=== PATIENT | female | born 1995 | race Caucasian/White ===

== ENCOUNTER 2020-03-06 15:54 | Inpatient (IN) ==
--- OUTSIDE RECORDS SUMMARY | 2020-03-06 15:59 | External Medical Summary | Continuity of Care Document ---
:1995 Author Name Markos Rosas Address Unavailable Unavailable , Care Team Providers Name Role Phone Unavailable Unavailable Unavailable Lissett Verdin M.D. Unavailable [email or web address] Kirsty BRITT M.D. Unavailable Unavailable Problems Active medical history not documented Allergies and Adverse Reactions No Known Allergies (Allergy) Medications No Reported Medications Ralph Verdin Refills: 0 Procedures Procedures not documented Immunizations Hepatitis B On: 18-Mar-1992 0:00 Hepatitis B On: 1993 0:00 DTaP On: 1993 0:00 HIB On: 1993 0:00 OPV On: 1993 0:00 DTaP On: 1993 0:00 HIB On: 1993 0:00 OPV On: 1993 0:00 Hepatitis B On: 1993 0:00 DTaP On: 1993 0:00 HIB On: 1993 0:00 HIB On: 27-May-1994 0:00 MMR On: 27-May-1994 0:00 DTaP On: 17-Aug-1994 0:00 OPV On: 17-Aug-1994 0:00 Varicella On: 17-Feb-1995 0:00 DTaP On: 08-Apr-1998 0:00 OPV On: 08-Apr-1998 0:00 MMR On: 08-Apr-1998 0:00 Tdap On: 26-May-2005 0:00 Varicella On: 06-Mar-2009 9:40 Lot #: [id number], [employer] Meningo (Menactra) On: 06-Mar-2009 9:40 Lot #: [id number], [employer] HPV (Gardasil) On: 06-Mar-2009 9:39 Lot #: [id number], [employer] HPV (Gardasil) On: 01-Jan-2010 11:46 Lot #: [id number], [employer] Influenza (Nasal) On: 01-Jan-2010 11:47 Lot #: [id number], [employer] HPV (Gardasil) On: 15-Sep-2011 9:19 Lot #: [id number], [employer] Hepatitis A On: 15-Sep-2011 9:19 Lot #: [id number], [employer] Plan of Treatment Planned Observations Planned Goals not documented Results No Known Results Results not documented
[2020-03-06 16:38] LABS: Basophils # (auto) 0.01 K/uL (0-0.2); Basophils % (auto) 0.1 %; Eosinophils # (auto) 0.09 K/uL (0-0.5); Eosinophils % (auto) 0.8 %; Hematocrit (blood only) 37.4 % (37-47); Hemoglobin 12.8 g/dL (12.0-16.0); Immature Granulocytes # (auto) 0.04 K/uL (0.00-0.02); Immature Granulocytes % (auto) 0.3 %; Lymphocytes # (auto) 2.78 K/uL (1.2-3.4); Lymphocytes % (auto) 23.8 %; Mean Corpuscular Hemoglobin 29.7 pg (25-34); Mean Corpuscular Hgb Conc 34.2 g/dL (32-36); Mean Corpuscular Volume 86.8 fL (80-100); Monocytes # (auto) 1.29 K/uL (0.11-0.59); Neutrophils # (auto) 7.47 K/uL (1.4-6.5); Platelet Count 282 K/uL (130-400); RDW Coefficient of Variation 12.1 % (11.5-14.5); RDW Standard Deviation 38.3 fL (36.4-46.3); Red Blood Count 4.31 M/uL (4.2-5.4); White Blood Count 11.68 K/uL (4.8-10.8)
[2020-03-06 16:58] LABS: Alanine Aminotransferase 15 U/L (12-78); Albumin Level 2.2 gm/dl (3.4-5.0); Aspartate Aminotransferase 14 U/L (15-37); BUN Creatinine Ratio 13.4 (10-20); Bilirubin Direct < 0.1 mg/dl (0-0.2); Blood Urea Nitrogen 8 mg/dl (7-18); Calcium 8.4 mg/dl (8.5-10.1); Carbon Dioxide 21 mmol/L (21-32); Chloride 106 mmol/L (98-107); Creatinine Clr Calc Pharmacy 145.4 ml/min; Est GFR (African American) 148.1; Est GFR (Non-African American) 127.8; Glucose 82 mg/dl (70-99); Potassium 3.7 mmol/L (3.5-5.1); Sodium 137 mmol/L (136-145); Uric Acid 4.7 mg/dl (2.6-7.2)
[2020-03-06 17:01] LABS: Alkaline Phosphatase 185 U/L (45-117); Bilirubin,Total 0.2 mg/dl (0.2-1); Total Protein 6.2 gm/dl (6.4-8.2)
[2020-03-06 17:42] LABS: Appearance Urine Clear (Clear); Bilirubin Urine Negative (Negative); Blood Urine Trace (Negative); Color Urine Yellow; Glucose Urine UA Negative (Negative); Ketones Urine Negative (Negative); Leukocyte Esterase Urine Negative (Negative); Nitrite Urine Negative (Negative); Protein Urine 4+ (Negative); Specific Gravity Urine 1.008 (1.000-1.030); Urobilinogen Urine Negative (Negative)
[2020-03-06 17:57] LABS: Protein Creatinine Ratio Urine 16.9 (0-0.2); Total Protein Urine Random 590.8 mg/dl (0-11.9)
[2020-03-06] MEDS ORDERED: OXYTOCIN 30 UNITS/500 ML BAG IV PRN (18:04)
[2020-03-06] MEDS ORDERED: PENICILLIN G POTASSIUM 6 MU in DEXTROSE 5% 250 ML IV STA (18:04)
[2020-03-06 18:09] LABS: Bacteria Urine Negative (Negative); Epithelial Cell Urine >30 /lpf (0-5); RBC Urine 0-4 /hpf (0-4); WBC Urine 0-5 /hpf (0-5)
[2020-03-06] MEDS ORDERED: DINOPROSTONE 10 MG INSERT PV ONE (18:22)
[2020-03-06] MEDS ORDERED: MAG SULFATE 6GM BOLUS FROM BAG IV ONE (18:23)
[2020-03-06] MEDS: LACTATED RINGER'S 1,000 ML IV PRN (18:34)
--- NOTE | 2020-03-06 18:37 | Obstetrical Progress Note ---
Date of Service March 06, 2020 Assessment & Plan Admission and Anticipated Discharge Date Admission Date: March 06, 2020 Subjective Admit Note 25 F P0010 at 36.3 weeks sent to L&D for elevated blood pressure and swelling in her legs with weight gain over the last few weeks. She denies headache, visual changes abdominal pain or any nausea or vomiting. Was seen today for her normal appointment and had 3+ protein on urine dip. she is now seen for monitoring of blood pressure and has BP 163/79 with 3-4+ pitting edema in lower extremities. No edema of upper extremities or face. NO RUQ pain with palpation. Uterus non-tender. FHT Cat 1. GBS status is unknown. Cervix closed/50/-3/firm/vertex/intact. Labs indicate 4+ protein in her urine. Will admit and start Magnesium with 6 gram bolus and 2 gram drip. Antibiotics for GBS prophylaxis when in active labor. Covid testing is pending. Plan for Cervidil for cervical ripening. Results & Data ([facility]) Vital Signs (Past 12 Hours) Vital Signs Temp Pulse Resp BP 03/06/20 18:16 98 H 189/111 H 03/06/20 18:06 93 H 170/106 H 03/06/20 17:56 88 154/98 H 03/06/20 17:47 93 H 150/99 H 03/06/20 17:36 86 157/99 H 03/06/20 17:26 87 167/100 H 03/06/20 17:16 90 171/102 H 03/06/20 17:06 92 H 157/102 H 03/06/20 16:56 93 H 156/101 H 03/06/20 16:52 93 H 159/102 H 03/06/20 16:36 90 164/97 H 03/06/20 16:26 90 164/97 H 03/06/20 16:17 93 H 177/110 H 03/06/20 16:11 37.0 C 20 03/06/20 16:04 96 H 187/102 H Laboratory Results 03/06/20 03/06/20 03/06/20 16:24 16:24 16:24 WBC 11.68 H RBC 4.31 Hgb 12.8 Hct 37.4 MCV 86.8 MCH 29.7 MCHC 34.2 RDW Std Deviation 38.3 RDW Coeff of Tabatha 12.1 Plt Count 282 MPV 11.0 H Immature Gran % (Auto) 0.3 Neut % (Auto) 64.0 Lymph % (Auto) 23.8 [place] % (Auto) 11.0 Eos % (Auto) 0.8 Baso % (Auto) 0.1 Neut # (Auto) 7.47 H Lymph # (Auto) 2.78 [place] # (Auto) 1.29 H Eos # (Auto) 0.09 Baso # (Auto) 0.01 Immature Gran # (Auto) 0.04 H Sodium 137 Potassium 3.7 Chloride 106 Carbon Dioxide 21 Anion Gap 10.0 BUN 8 Creatinine 0.56 L Est Cr Clr Drug Dosing 145.4 Est GFR ( Amer) 148.1 Est GFR (Non-Af Amer) 127.8 BUN/Creatinine Ratio 13.4 Glucose 82 Uric Acid 4.7 Calcium 8.4 L Total Bilirubin 0.2 Direct Bilirubin < 0.1 AST 14 L ALT 15 Alkaline Phosphatase 185 H Lactate Dehydrogenase 178 Total Protein 6.2 L Albumin 2.2 L Urine Color Urine Appearance Urine pH Ur Specific [place] Urine Protein Urine Glucose (UA) Urine Ketones Urine Blood Urine Nitrite Urine Bilirubin Urine Urobilinogen Ur Leukocyte Esterase Urine RBC Urine WBC Ur Epithelial Cells Urine Bacteria Ur Random Creatinine U Random Total Protein Protein/Creatinin Ratio COVID-19 Eval Order 03/06/20 03/06/20 03/06/20 Unknown Unknown Unknown WBC RBC Hgb Hct MCV MCH MCHC RDW Std Deviation RDW Coeff of Tabatha Plt Count MPV Immature Gran % (Auto) Neut % (Auto) Lymph % (Auto) [place] % (Auto) Eos % (Auto) Baso % (Auto) Neut # (Auto) Lymph # (Auto) [place] # (Auto) Eos # (Auto) Baso # (Auto) Immature Gran # (Auto) Sodium Potassium Chloride Carbon Dioxide Anion Gap BUN Creatinine Est Cr Clr Drug Dosing Est GFR ( Amer) Est GFR (Non-Af Amer) BUN/Creatinine Ratio Glucose Uric Acid Calcium Total Bilirubin Direct Bilirubin AST ALT Alkaline Phosphatase Lactate Dehydrogenase Total Protein Albumin Urine Color Yellow Urine Appearance Clear Urine pH 7.0 Ur Specific [place] 1.008 Urine Protein 4+ H Urine Glucose (UA) Negative Urine Ketones Negative Urine Blood Trace H Urine Nitrite Negative Urine Bilirubin Negative Urine Urobilinogen Negative Ur Leukocyte Esterase Negative Urine RBC 0-4 Urine WBC 0-5 Ur Epithelial Cells >30 H Urine Bacteria Negative Ur Random Creatinine 35.0 U Random Total Protein 590.8 H Protein/Creatinin Ratio 16.9 H COVID-19 [facility]
[2020-03-06] MEDS: MAGNESIUM SULFATE / WTR 40 GM/1,000 ML BAG IV SCH (18:52)
--- NOTE | 2020-03-06 19:28 | Obstetrical Progress Note ---
Date of Service March 06, 2020 Assessment & Plan Admission and Anticipated Discharge Date Admission Date: March 06, 2020 Physical Exam Genitourinary: Cervidil 10 mg placed vaginally for cervical ripening Results & Data ([facility]) Vital Signs (Past 12 Hours) Vital Signs Temp Pulse Resp BP 03/06/20 19:26 109 H 160/91 H 03/06/20 19:16 112 H 155/89 H 03/06/20 19:06 104 H 165/104 H 03/06/20 18:56 101 H 155/79 H 03/06/20 18:46 96 H 166/89 H 03/06/20 18:36 109 H 178/107 H 03/06/20 18:26 88 163/79 H 03/06/20 18:16 98 H 189/111 H 03/06/20 18:06 93 H 170/106 H 03/06/20 17:56 88 154/98 H 03/06/20 17:47 93 H 150/99 H 03/06/20 17:36 86 157/99 H 03/06/20 17:26 87 167/100 H 03/06/20 17:16 90 171/102 H 03/06/20 17:06 92 H 157/102 H 03/06/20 16:56 93 H 156/101 H 03/06/20 16:52 93 H 159/102 H 03/06/20 16:36 90 164/97 H 03/06/20 16:26 90 164/97 H 03/06/20 16:17 93 H 177/110 H 03/06/20 16:11 37.0 C 20 03/06/20 16:04 96 H 187/102 H
[2020-03-06] MEDS: PENICILLIN G POTASSIUM 3 MU in DEXTROSE 5% 100 ML IV PRN (22:31)
[2020-03-06] MEDS ORDERED: ERYTHROMYCIN OP OINT 1 GM PKT ONE (23:56)
[2020-03-06] MEDS ORDERED: LIDOCAINE HCL 1% 20 ML VIAL ONE (23:56)
[2020-03-07] MEDS: PENICILLIN G POTASSIUM 3 MU in DEXTROSE 5% 100 ML IV PRN ×5 (02:44→17:58)
--- NOTE | 2020-03-07 07:32 | Obstetrical Progress Note ---
Date of Service March 07, 2020 Assessment & Plan Admission and Anticipated Discharge Date Admission Date: March 06, 2020 Physical Exam Genitourinary: Manual OB Exam: + cervical dilation fingertip, + cervical effacement 50% and + station high OB Exam Monitor Tracing: + external FHT monitor used, + external uterine monitor used, + category I and + normal FHT variability Cervidil removed Results & Data ([facility]) Vital Signs (Past 12 Hours) Vital Signs Pulse Resp BP 03/07/20 07:11 109 H 156/89 H 03/07/20 06:57 103 H 136/88 03/07/20 06:00 18 03/07/20 05:57 107 H 137/85 03/07/20 05:00 18 03/07/20 04:57 114 H 136/86 03/07/20 03:57 110 H 141/85 H 03/07/20 03:00 18 03/07/20 02:57 102 H 143/94 H 03/07/20 02:00 16 03/07/20 01:57 105 H 160/95 H 03/07/20 00:57 100 H 139/86 03/07/20 00:00 18 03/06/20 23:58 97 H 143/86 H 03/06/20 23:15 18 03/06/20 23:00 18 03/06/20 22:57 103 H 143/98 H 03/06/20 22:45 18 03/06/20 22:36 99 H 151/82 H 03/06/20 22:30 18 03/06/20 22:26 101 H 135/75 03/06/20 22:16 95 H 143/71 H 03/06/20 22:15 16 03/06/20 22:06 96 H 139/76 03/06/20 22:00 18 03/06/20 21:56 96 H 147/78 H 03/06/20 21:46 110 H 146/72 H 03/06/20 21:45 18 03/06/20 21:36 91 H 140/75 03/06/20 21:30 18 03/06/20 21:26 93 H 141/78 H 03/06/20 21:16 101 H 143/75 H 03/06/20 21:15 18 03/06/20 21:08 94 H 155/92 H 03/06/20 21:00 18 03/06/20 20:56 90 151/86 H 03/06/20 20:46 90 147/90 H 03/06/20 20:45 18 03/06/20 20:36 95 H 150/90 H 03/06/20 20:30 18 03/06/20 20:26 97 H 145/88 H 03/06/20 20:16 98 H 143/80 H 03/06/20 20:15 18 03/06/20 20:06 96 H 152/85 H 03/06/20 20:00 18 03/06/20 19:56 93 H 150/87 H 03/06/20 19:46 96 H 144/83 H 03/06/20 19:45 18 03/06/20 19:36 96 H 151/84 H
[2020-03-07] MEDS ORDERED: OXYTOCIN 30 UNITS/500 ML BAG IV PRN (08:32)
[2020-03-07 08:54] LABS: Basophils # (auto) 0.02 K/uL (0-0.2); Basophils % (auto) 0.1 %; Eosinophils # (auto) 0.02 K/uL (0-0.5); Eosinophils % (auto) 0.1 %; Hematocrit (blood only) 35.9 % (37-47); Hemoglobin 12.3 g/dL (12.0-16.0); Immature Granulocytes # (auto) 0.03 K/uL (0.00-0.02); Immature Granulocytes % (auto) 0.2 %; Lymphocytes # (auto) 1.82 K/uL (1.2-3.4); Lymphocytes % (auto) 11.7 %; Mean Corpuscular Hemoglobin 29.7 pg (25-34); Mean Corpuscular Hgb Conc 34.3 g/dL (32-36); Mean Corpuscular Volume 86.7 fL (80-100); Mean Platelet Volume 10.9 fL (7.4-10.4); Monocytes % (auto) 7.7 %; Neutrophils # (auto) 12.49 K/uL (1.4-6.5); Neutrophils % (auto) 80.2 %; Platelet Count 318 K/uL (130-400); RDW Coefficient of Variation 12.5 % (11.5-14.5); RDW Standard Deviation 39.9 fL (36.4-46.3); Red Blood Count 4.14 M/uL (4.2-5.4); White Blood Count 15.58 K/uL (4.8-10.8)
--- NOTE | 2020-03-07 09:04 | History & Physical Report ---
Date of Service March 07, 2020 Assessment & Plan (1) Pre-eclampsia during in third trimester, antepartum: 25-year-old G1, P0 at 36 weeks) of gestation, admitted yesterday for preeclampsia with severe features, on IV magnesium for seizure prophylaxis. Vital signs stable afebrile No signs or symptoms of magnesium toxicity. Status post 1 dose of Cervidil, cervix is still unfavorable. Peres balloon was inserted and plan to start oxytocin. Patient agrees with plan and all questions were answered. Today's labs and magnesium level are pending Continue to monitor closely. Admission and Anticipated Discharge Date Admission Date: March 06, 2020 History of Present Illness Primary Care Provider: NO PCP 25-year-old G1, P0 at 36 weeks and 5 days gestation who was admitted yesterday by Dr. Guo for preeclampsia with severe features, elevated blood pressures and proteinuria and severe lower extremity edema. She was started on IV magnesium and received Cervidil for cervical ripening. Cervidil was removed this morning and her cervix was fingertip. Platelets and liver enzymes were normal. And her blood pressures have been stable. Patient seen and examined by myself, I reviewed her records from office and as well as with her self. She feels well this morning no complaints. She denies headache, change in her vision, epigastric or right upper quadrant pain, nausea or vomiting. She denies fever, chills, chest pain or shortness of breath. She feels mild contractions which are not painful. She denies vaginal bleeding. She reports good movements. Her was uncomplicated until yesterday. Allergies Allergy/AdvReac Type Severity Reaction Status Date / Time BEES Allergy Mild hives Uncoded 03/06/20 17:50 Home Medications Medication Instructions Recorded Confirmed Type prenat.vits,monique,csb-ifax-[id number] 1 tab PO DAILY 03/06/20 03/06/20 History [ Vitamin] Patient History Surgical History [place] teeth extracted Social History Smoking Status: Never smoker Hx Alcohol Use: No Hx Substance Use: No Preferred Language: Slovak Beliefs That Will Affect Care: None marital status: Current Living Situation: Spouse Other Information That Helps Us Care for You: No Feels Safe at Home: Yes Safety Concerns: Feels Safe At This Time Assistive Devices: None BASE PLY HAND History No h/o STD's Review of Systems All systems reviewed & are unremarkable except as noted in HPI & below Physical Exam Constitutional: WD/WN, vitals as above well developed and well nourished NAD Respiratory: normal respiratory effort, lungs clear to auscultation normal respiratory effort Cardiovascular: RRR, no murmur, no edema Rate/Rhythm: regular rate and regular rhythm Heart Sounds: normal S1 and normal S2 Gastrointestinal (Abdomen): normal bowel sounds, soft, nontender, no hepatosplenomegaly (Gravid) Musculoskeletal: LE: 3/3 edema, SCD's on, DTR 2/2, No clonus Genitourinary: Manual OB Exam: + cervical dilation 1 cm, + cervical effacement 50% and + station high OB Exam Monitor Tracing: + external uterine monitor used and + category I SSE: Cervix was visualized and appeared to be 1 cm dilated. It was cleaned with Betadine. 18 [place] Peres catheter was inserted and inflated with 35 mm of sterile normal saline. It was attached to her leg with mild retraction. Patient tolerated the procedure well. Results & Data ([facility]) Vital Signs (Past 12 Hours) Vital Signs Temp Pulse Resp BP 03/07/20 07:58 102 H 138/90 03/07/20 07:11 36.7 C 109 H 18 156/89 H 03/07/20 06:57 103 H 136/88 03/07/20 06:00 18 03/07/20 05:57 107 H 137/85 03/07/20 05:00 18 03/07/20 04:57 114 H 136/86 03/07/20 03:57 110 H 141/85 H 03/07/20 03:00 18 03/07/20 02:57 102 H 143/94 H 03/07/20 02:00 16 03/07/20 01:57 105 H 160/95 H 03/07/20 00:57 100 H 139/86 03/07/20 00:00 18 03/06/20 23:58 97 H 143/86 H 03/06/20 23:15 18 03/06/20 23:00 18 03/06/20 22:57 103 H 143/98 H 03/06/20 22:45 18 03/06/20 22:36 99 H 151/82 H 03/06/20 22:30 18 03/06/20 22:26 101 H 135/75 03/06/20 22:16 95 H 143/71 H 03/06/20 22:15 16 03/06/20 22:06 96 H 139/76 03/06/20 22:00 18 03/06/20 21:56 96 H 147/78 H 03/06/20 21:46 110 H 146/72 H 03/06/20 21:45 18 03/06/20 21:36 91 H 140/75 03/06/20 21:30 18 03/06/20 21:26 93 H 141/78 H 03/06/20 21:16 101 H 143/75 H 03/06/20 21:15 18 03/06/20 21:08 94 H 155/92 H 03/06/20 21:00 18 03/06/20 20:56 90 151/86 H Laboratory Results Lab Results 03/06/20 03/06/20 03/06/20 Range/Units 16:24 16:24 16:24 WBC 11.68 H (4.8-10.8) K/uL RBC 4.31 (4.2-5.4) M/uL Hgb 12.8 (12.0-16.0) g/dL Hct 37.4 (37-47) % MCV 86.8 (80-100) fL MCH 29.7 (25-34) pg MCHC 34.2 (32-36) g/dL RDW Std Deviation 38.3 (36.4-46.3) fL RDW Coeff of Tabatha 12.1 (11.5-14.5) % Plt Count 282 (130-400) K/uL MPV 11.0 H (7.4-10.4) fL Immature Gran % (Auto) 0.3 % Neut % (Auto) 64.0 % Lymph % (Auto) 23.8 % [place] % (Auto) 11.0 % Eos % (Auto) 0.8 % Baso % (Auto) 0.1 % Neut # (Auto) 7.47 H (1.4-6.5) K/uL Lymph # (Auto) 2.78 (1.2-3.4) K/uL [place] # (Auto) 1.29 H (0.11-0.59) K/uL Eos # (Auto) 0.09 (0-0.5) K/uL Baso # (Auto) 0.01 (0-0.2) K/uL Immature Gran # (Auto) 0.04 H (0.00-0.02) K/uL Sodium 137 (136-145) mmol/L Potassium 3.7 (3.5-5.1) mmol/L Chloride 106 (98-107) mmol/L Carbon Dioxide 21 (21-32) mmol/L Anion Gap 10.0 (3-11) BUN 8 (7-18) mg/dl Creatinine 0.56 L (0.6-1.2) mg/dl Est Cr Clr Drug Dosing 145.4 ml/min Est GFR ( Amer) 148.1 Est GFR (Non-Af Amer) 127.8 BUN/Creatinine Ratio 13.4 (10-20) Glucose 82 (70-99) mg/dl Uric Acid 4.7 (2.6-7.2) mg/dl Calcium 8.4 L (8.5-10.1) mg/dl Total Bilirubin 0.2 (0.2-1) mg/dl Direct Bilirubin < 0.1 (0-0.2) mg/dl AST 14 L (15-37) U/L ALT 15 (12-78) U/L Alkaline Phosphatase 185 H (45-117) U/L Lactate Dehydrogenase 178 (84-246) U/L Total Protein 6.2 L (6.4-8.2) gm/dl Albumin 2.2 L (3.4-5.0) gm/dl Urine Color Urine Appearance (Clear) Urine pH (4.5-7.5) Ur Specific [place] (1.000-1.030) Urine Protein (Negative) Urine Glucose (UA) (Negative) Urine Ketones (Negative) Urine Blood (Negative) Urine Nitrite (Negative) Urine Bilirubin (Negative) Urine Urobilinogen (Negative) Ur Leukocyte Esterase (Negative) Urine RBC (0-4) /hpf Urine WBC (0-5) /hpf Ur Epithelial Cells (0-5) /lpf Urine Bacteria (Negative) Ur Random Creatinine mg/dl U Random Total Protein (0-11.9) mg/dl Protein/Creatinin Ratio (0-0.2) COVID-19 Eval Order SARS-CoV-2, RNA, NAAT (NEGATIVE) 03/06/20 03/06/20 03/06/20 Range/Units Unknown Unknown Unknown WBC (4.8-10.8) K/uL RBC (4.2-5.4) M/uL Hgb (12.0-16.0) g/dL Hct (37-47) % MCV (80-100) fL MCH (25-34) pg MCHC (32-36) g/dL RDW Std Deviation (36.4-46.3) fL RDW Coeff of Tabatha (11.5-14.5) % Plt Count (130-400) K/uL MPV (7.4-10.4) fL Immature Gran % (Auto) % Neut % (Auto) % Lymph % (Auto) % [place] % (Auto) % Eos % (Auto) % Baso % (Auto) % Neut # (Auto) (1.4-6.5) K/uL Lymph # (Auto) (1.2-3.4) K/uL [place] # (Auto) (0.11-0.59) K/uL Eos # (Auto) (0-0.5) K/uL Baso # (Auto) (0-0.2) K/uL Immature Gran # (Auto) (0.00-0.02) K/uL Sodium (136-145) mmol/L Potassium (3.5-5.1) mmol/L Chloride (98-107) mmol/L Carbon Dioxide (21-32) mmol/L Anion Gap (3-11) BUN (7-18) mg/dl Creatinine (0.6-1.2) mg/dl Est Cr Clr Drug Dosing ml/min Est GFR ( Amer) Est GFR (Non-Af Amer) BUN/Creatinine Ratio (10-20) Glucose (70-99) mg/dl Uric Acid (2.6-7.2) mg/dl Calcium (8.5-10.1) mg/dl Total Bilirubin (0.2-1) mg/dl Direct Bilirubin (0-0.2) mg/dl AST (15-37) U/L ALT (12-78) U/L Alkaline Phosphatase (45-117) U/L Lactate Dehydrogenase (84-246) U/L Total Protein (6.4-8.2) gm/dl Albumin (3.4-5.0) gm/dl Urine Color Yellow Urine Appearance Clear (Clear) Urine pH 7.0 (4.5-7.5) Ur Specific [place] 1.008 (1.000-1.030) Urine Protein 4+ H (Negative) Urine Glucose (UA) Negative (Negative) Urine Ketones Negative (Negative) Urine Blood Trace H (Negative) Urine Nitrite Negative (Negative) Urine Bilirubin Negative (Negative) Urine Urobilinogen Negative (Negative) Ur Leukocyte Esterase Negative (Negative) Urine RBC 0-4 (0-4) /hpf Urine WBC 0-5 (0-5) /hpf Ur Epithelial Cells >30 H (0-5) /lpf Urine Bacteria Negative (Negative) Ur Random Creatinine 35.0 mg/dl U Random Total Protein 590.8 H (0-11.9) mg/dl Protein/Creatinin Ratio 16.9 H (0-0.2) COVID-19 Eval Order Covid19 [facility] SARS-CoV-2, RNA, NAAT (NEGATIVE) 03/06/20 03/07/20 Range/Units Unknown 08:31 WBC 15.58 H (4.8-10.8) K/uL RBC 4.14 L (4.2-5.4) M/uL Hgb 12.3 (12.0-16.0) g/dL Hct 35.9 L (37-47) % MCV 86.7 (80-100) fL MCH 29.7 (25-34) pg MCHC 34.3 (32-36) g/dL RDW Std Deviation 39.9 (36.4-46.3) fL RDW Coeff of Tabatha 12.5 (11.5-14.5) % Plt Count 318 (130-400) K/uL MPV 10.9 H (7.4-10.4) fL Immature Gran % (Auto) 0.2 % Neut % (Auto) 80.2 % Lymph % (Auto) 11.7 % [place] % (Auto) 7.7 % Eos % (Auto) 0.1 % Baso % (Auto) 0.1 % Neut # (Auto) 12.49 H (1.4-6.5) K/uL Lymph # (Auto) 1.82 (1.2-3.4) K/uL [place] # (Auto) 1.20 H (0.11-0.59) K/uL Eos # (Auto) 0.02 (0-0.5) K/uL Baso # (Auto) 0.02 (0-0.2) K/uL Immature Gran # (Auto) 0.03 H (0.00-0.02) K/uL Sodium (136-145) mmol/L Potassium (3.5-5.1) mmol/L Chloride (98-107) mmol/L Carbon Dioxide (21-32) mmol/L Anion Gap (3-11) BUN (7-18) mg/dl Creatinine (0.6-1.2) mg/dl Est Cr Clr Drug Dosing ml/min Est GFR ( Amer) Est GFR (Non-Af Amer) BUN/Creatinine Ratio (10-20) Glucose (70-99) mg/dl Uric Acid (2.6-7.2) mg/dl Calcium (8.5-10.1) mg/dl Total Bilirubin (0.2-1) mg/dl Direct Bilirubin (0-0.2) mg/dl AST (15-37) U/L ALT (12-78) U/L Alkaline Phosphatase (45-117) U/L Lactate Dehydrogenase (84-246) U/L Total Protein (6.4-8.2) gm/dl Albumin (3.4-5.0) gm/dl Urine Color Urine Appearance (Clear) Urine pH (4.5-7.5) Ur Specific [place] (1.000-1.030) Urine Protein (Negative) Urine Glucose (UA) (Negative) Urine Ketones (Negative) Urine Blood (Negative) Urine Nitrite (Negative) Urine Bilirubin (Negative) Urine Urobilinogen (Negative) Ur Leukocyte Esterase (Negative) Urine RBC (0-4) /hpf Urine WBC (0-5) /hpf Ur Epithelial Cells (0-5) /lpf Urine Bacteria (Negative) Ur Random Creatinine mg/dl U Random Total Protein (0-11.9) mg/dl Protein/Creatinin Ratio (0-0.2) COVID-19 Eval Order SARS-CoV-2, RNA, NAAT NEGATIVE (NEGATIVE) Code Status & VTE Plan VTE Prophylaxis Plan VTE Prophylaxis will be ordered: No
[2020-03-07 09:34] LABS: Albumin Level 2.1 gm/dl (3.4-5.0); Calcium 7.7 mg/dl (8.5-10.1); Creatinine Clr Calc Pharmacy 150.8 ml/min; Est GFR (African American) 149.9; Est GFR (Non-African American) 129.3; Magnesium 5.9 mg/dl (1.8-2.4); Potassium 4.1 mmol/L (3.5-5.1)
[2020-03-07 09:39] LABS: Albumin Globulin Ratio 0.6 (0.9-2); Bilirubin,Total 0.3 mg/dl (0.2-1); Globulin 3.7 gm/dl (2.5-4.0); Total Protein 5.8 gm/dl (6.4-8.2)
[2020-03-07] MEDS: BUTORPHANOL TARTRATE 1 MG/ML VIAL IV PRN ×2 (09:42→14:06)
[2020-03-07] MEDS: LACTATED RINGER'S 1,000 ML IV PRN ×2 (10:09→17:15)
[2020-03-07] MEDS: MAGNESIUM SULFATE / WTR 40 GM/1,000 ML BAG IV SCH (11:58)
[2020-03-07] MEDS ORDERED: SODIUM CHLORIDE 0.9% INJ 10 ML VIAL ONE (15:25)
[2020-03-07] MEDS ORDERED: ePHEDrine sulfate 50 MG/ML AMP ONE (15:25)
[2020-03-07] MEDS ORDERED: BUPIVACAINE 0.25% 30 ML VIAL ONE (15:25)
[2020-03-07] MEDS ORDERED: fentaNYL citrate 100 MCG/2 ML VIAL ONE (15:26)
[2020-03-07] MEDS ORDERED: fentaNYL 2MCG/ML ROPIVACAINE 1.25MG/ML 100 ML BAG EPI ONE (15:27)
--- NOTE | 2020-03-07 15:30 | Obstetrical Progress Note ---
Date of Service March 07, 2020 Assessment & Plan Admission and Anticipated Discharge Date Admission Date: March 06, 2020 Subjective Patient is reevaluated She feels well, no complaints She had connelly balloon this morning with Pitocin started It is now at 20miu/min She received Stadol 1 mg IVX2 FHR categ I, decreased variability with Stadol no decels VE; Ballon was in lower vagina, removed Cervix 4-5 cm/ 50%/ -2, AROM'ed clear fluid FHR had acceleration with increased variability after VE Continue to monitor closely Results & Data ([facility]) Vital Signs (Past 12 Hours) Vital Signs Temp Pulse Resp BP 03/07/20 14:57 102 H 139/84 03/07/20 14:00 18 03/07/20 13:57 104 H 155/95 H 03/07/20 12:58 100 H 20 150/87 H 03/07/20 11:57 107 H 16 137/90 03/07/20 10:57 98 H 20 143/84 H 03/07/20 09:57 95 H 18 161/85 H 03/07/20 08:57 99 H 20 139/73 03/07/20 07:58 102 H 20 138/90 03/07/20 07:11 36.7 C 109 H 18 156/89 H 03/07/20 06:57 103 H 136/88 03/07/20 06:00 18 03/07/20 05:57 107 H 137/85 03/07/20 05:00 18 03/07/20 04:57 114 H 136/86 03/07/20 03:57 110 H 141/85 H
--- NOTE | 2020-03-07 15:36 | Anesthesiology Consultation ---
Date of Service March 07, 2020 Assessment & Plan (1) Encounter for pre-operative examination: Chart Review Chart Review: Acceptable Risk for Surgery and Patient NOT seen in Pre Admission Testing Consults Requested none History Height/Weight Height: 5 ft Weight: 84.368 kg Allergies Allergy/AdvReac Type Severity Reaction Status Date / Time BEES Allergy Mild hives Uncoded 03/06/20 17:50 Medications Home Medications Medication Instructions Recorded Confirmed Last Taken prenat.vits,monique,ktr-lciw-csmbw 1 tab PO DAILY 03/06/20 03/06/20 03/06/20 07:00 [ Vitamin] Active Medications Generic Name Dose Route Start Last Admin Trade Name Freq PRN Reason Stop Dose Admin Butorphanol Tartrate 1 mg 03/07/20 09:04 03/07/20 14:06 Butorphanol Tartrate 1 Mg/Ml Vial IV 04/06/20 09:03 1 mg Q3HWA PRN Administration Pain Lactated Ringer's 1,000 mls @ 125 mls/hr 03/06/20 18:04 03/07/20 15:28 Lr IV 03/08/20 18:03 999 mls/hr .Q8H PRN Infusion L&D Protocol Protocol Penicillin G Potassium 3 mu/ 106 mls @ 100 mls/hr 03/06/20 18:04 03/07/20 14:06 Dextrose IV 03/16/20 18:03 100 mls/hr Q4H PRN Administration Give until delivery Magnesium Sulfate 40 gm in 1,000 mls @ 37.5 mls/hr 03/06/20 18:30 03/07/20 11:58 Magnesium Sulfate / Wtr IV 04/05/20 18:29 37.5 mls/hr .Q24H EMMY Administration Oxytocin 30 units in 500 mls @ 20 mls/hr 03/07/20 08:32 03/07/20 14:00 Pitocin IV 03/09/20 08:31 1.2 units/hr .Q24H PRN 20 mls/hr Labor Induction/Augmentation Titration Protocol 1.2 UNITS/HR Past Surgical History Surgical History [place] teeth extracted Social History Smoking Status: Never smoker Hx Alcohol Use: No Hx Substance Use: No substance use type: does not use Physical Exam Vital Signs Last Vital Signs Temp 37.6 C H 03/07/20 15:29 Pulse 114 H 03/07/20 15:31 Resp 20 03/07/20 14:57 BP 139/84 03/07/20 14:57 Pulse Ox 97 03/07/20 15:31 Testing Laboratory Results 03/07/20 08:31 03/07/20 08:31 Urine Color Yellow 03/06/20 Unknown Urine Appearance Clear (Clear) 03/06/20 Unknown Urine pH 7.0 (4.5-7.5) 03/06/20 Unknown Ur Specific [place] 1.008 (1.000-1.030) 03/06/20 Unknown Urine Protein 4+ (Negative) H 03/06/20 Unknown Urine Glucose (UA) Negative (Negative) 03/06/20 Unknown Urine Ketones Negative (Negative) 03/06/20 Unknown Urine Nitrite Negative (Negative) 03/06/20 Unknown Ur Leukocyte Esterase Negative (Negative) 03/06/20 Unknown Urine RBC 0-4 /hpf (0-4) 03/06/20 Unknown Urine WBC 0-5 /hpf (0-5) 03/06/20 Unknown Ur Epithelial Cells >30 /lpf (0-5) H 03/06/20 Unknown
[2020-03-07] MEDS ORDERED: NALOXONE HCL 0.4 MG/1 ML VIAL/CARP IV PRN ×2 (16:12→23:08)
[2020-03-07] MEDS ORDERED: fentaNYL 2MCG/ML ROPIVACAINE 1.25MG/ML 100 ML BAG EPI PRN (16:12)
[2020-03-07] MEDS ORDERED: diphenhydrAMINE 50 MG/ML VIAL IV PRN ×2 (16:12→23:08)
[2020-03-07] MEDS ORDERED: ONDANSETRON INJ 2 MG/ML 2 ML VIAL IV PRN ×2 (16:12→23:08)
[2020-03-07] MEDS ORDERED: ePHEDrine sulfate 50 MG/ML AMP IV PRN ×2 (16:12→23:08)
[2020-03-07] MEDS ORDERED: NALOXONE HCL 1 MG in SODIUM CHLORIDE 0.9% 1000ML 1,000 ML IV PRN ×2 (16:12→23:08)
[2020-03-07] MEDS ORDERED: MINERAL OIL 30 ML UDC ONE (16:32)
[2020-03-07] MEDS: LABETALOL HCL 100 MG TAB PO SCH ×2 (17:17→21:18)
--- NOTE | 2020-03-07 17:23 | Obstetrical Progress Note ---
Date of Service March 07, 2020 Assessment & Plan Admission and Anticipated Discharge Date Admission Date: March 06, 2020 Subjective Patient received epidural and feels comfortable Pressure + with ctx sonly Elevated BP's, severe ranges were when she was lying on her arm where the cuff was No SALDIVAR/ change in vision/ Epig or RUQ pain/ CP/SOB CVS S1 S2 RRR Lungs : CTAB VE; unchanged, 5cm/ 50%/ -2, Pitocin has been on 20 miu/min, IUPC was placed DTR: 2+/+2, no clonus BL FHR categ I Mag level 5.9 same UOP adequate Continue to monitor closely Results & Data ([facility]) Vital Signs (Past 12 Hours) Vital Signs Temp Pulse Resp BP Pulse Ox 03/07/20 17:16 95 H 97 03/07/20 17:11 123 H 96 03/07/20 17:06 116 H 156/88 H 97 03/07/20 17:01 110 H 98 03/07/20 16:56 115 H 97 03/07/20 16:51 115 H 153/74 H 97 03/07/20 16:46 107 H 96 03/07/20 16:45 109 H 165/102 H 03/07/20 16:41 109 H 98 03/07/20 16:40 112 H 189/107 H 03/07/20 16:36 104 H 97 03/07/20 16:31 111 H 97 03/07/20 16:30 113 H 169/92 H 03/07/20 16:26 114 H 97 03/07/20 16:25 117 H 150/76 H 03/07/20 16:23 139 H 147/87 H 03/07/20 16:21 138 H 97 03/07/20 16:19 110 H 151/76 H 03/07/20 16:16 113 H 155/82 H 96 03/07/20 16:12 109 H 156/84 H 03/07/20 16:11 116 H 98 03/07/20 16:10 113 H 150/79 H 03/07/20 16:07 120 H 156/102 H 03/07/20 16:06 118 H 96 03/07/20 16:03 116 H 168/98 H 03/07/20 16:01 120 H 96 03/07/20 15:56 119 H 97 03/07/20 15:51 125 H 96 03/07/20 15:46 126 H 98 03/07/20 15:41 112 H 97 03/07/20 15:36 112 H 97 03/07/20 15:31 114 H 97 03/07/20 15:29 37.6 C H 03/07/20 14:57 102 H 20 139/84 03/07/20 14:00 18 03/07/20 13:57 104 H 155/95 H 03/07/20 12:58 100 H 20 150/87 H 03/07/20 11:57 107 H 16 137/90 03/07/20 10:57 98 H 20 143/84 H 03/07/20 09:57 95 H 18 161/85 H 03/07/20 08:57 99 H 20 139/73 03/07/20 07:58 102 H 20 138/90 03/07/20 07:11 36.7 C 109 H 18 156/89 H 03/07/20 06:57 103 H 136/88 03/07/20 06:00 18 03/07/20 05:57 107 H 137/85
[2020-03-07] MEDS: D5W AND LACTATED RINGERS 1,000 ML IV SCH (19:13)
--- NOTE | 2020-03-07 19:48 | Obstetrical Progress Note ---
Date of Service March 07, 2020 Assessment & Plan Admission and Anticipated Discharge Date Admission Date: March 06, 2020 Subjective Patient is reevaluated Feels well no complaints U/A still has 3+ protein, and 2+ ketones Started on D5LR UOP 100 ml in 1.5 hours Pitocin had been on 22miu/min, uterine ctxs over 200 mmHG /10 min FHR categ I VE; 5/ 60%/ -2, coned head Plan to try other side to help for internal rotation and reevaluate in 2 hours Results & Data ([facility]) Vital Signs (Past 12 Hours) Vital Signs Temp Pulse Resp BP Pulse Ox 03/07/20 19:41 102 H 97 03/07/20 19:36 108 H 156/92 H 97 03/07/20 19:31 96 H 96 03/07/20 19:26 98 H 97 03/07/20 19:21 96 H 156/96 H 97 03/07/20 19:16 97 H 96 03/07/20 19:11 105 H 97 03/07/20 19:09 89 94 03/07/20 19:06 91 H 94 03/07/20 19:05 89 139/82 03/07/20 19:03 90 94 03/07/20 19:01 93 H 94 03/07/20 18:57 91 H 94 03/07/20 18:56 88 94 03/07/20 18:52 92 H 94 03/07/20 18:51 93 H 134/84 94 03/07/20 18:46 94 H 94 03/07/20 18:41 89 95 03/07/20 18:39 89 94 03/07/20 18:36 88 96 03/07/20 18:35 93 H 144/88 H 03/07/20 18:31 97 H 96 03/07/20 18:26 90 96 03/07/20 18:21 100 H 97 03/07/20 18:20 93 H 142/87 H 03/07/20 18:16 88 97 03/07/20 18:11 91 H 96 03/07/20 18:06 90 147/87 H 96 03/07/20 18:01 91 H 20 97 03/07/20 17:56 93 H 96 03/07/20 17:51 100 H 97 03/07/20 17:50 96 H 137/86 03/07/20 17:46 90 97 03/07/20 17:41 91 H 98 03/07/20 17:36 100 H 97 03/07/20 17:35 96 H 143/91 H 03/07/20 17:31 91 H 96 03/07/20 17:26 95 H 97 03/07/20 17:21 94 H 142/92 H 97 03/07/20 17:16 95 H 97 03/07/20 17:11 123 H 96 03/07/20 17:06 116 H 156/88 H 97 03/07/20 17:01 110 H 98 03/07/20 17:00 37.3 C 20 03/07/20 16:56 115 H 97 03/07/20 16:51 115 H 153/74 H 97 03/07/20 16:46 107 H 96 03/07/20 16:45 109 H 165/102 H 03/07/20 16:41 109 H 98 03/07/20 16:40 112 H 189/107 H 03/07/20 16:36 104 H 97 03/07/20 16:31 111 H 97 03/07/20 16:30 113 H 169/92 H 03/07/20 16:26 114 H 97 03/07/20 16:25 117 H 150/76 H 03/07/20 16:23 139 H 147/87 H 03/07/20 16:21 138 H 97 03/07/20 16:19 110 H 151/76 H 03/07/20 16:16 113 H 155/82 H 96 03/07/20 16:12 109 H 156/84 H 03/07/20 16:11 116 H 98 03/07/20 16:10 113 H 150/79 H 03/07/20 16:07 120 H 156/102 H 03/07/20 16:06 118 H 96 03/07/20 16:03 116 H 168/98 H 03/07/20 16:01 120 H 20 96 03/07/20 15:56 119 H 97 03/07/20 15:51 125 H 96 03/07/20 15:46 126 H 98 03/07/20 15:41 112 H 97 03/07/20 15:36 112 H 97 03/07/20 15:31 114 H 97 03/07/20 15:29 37.6 C H 03/07/20 14:57 102 H 20 139/84 03/07/20 14:00 18 03/07/20 13:57 104 H 155/95 H 03/07/20 12:58 100 H 20 150/87 H 03/07/20 11:57 107 H 16 137/90 03/07/20 10:57 98 H 20 143/84 H 03/07/20 09:57 95 H 18 161/85 H 03/07/20 08:57 99 H 20 139/73 03/07/20 07:58 102 H 20 138/90
[2020-03-07] MEDS ORDERED: AZITHROMYCIN 500 MG in DEXTROSE 5% 250 ML IV STA (21:48)
[2020-03-07] MEDS ORDERED: CITRIC ACID/SODIUM CITRATE 15 ML UDC ONE (21:49)
--- NOTE | 2020-03-07 21:54 | Obstetrical Progress Note ---
Date of Service March 07, 2020 Assessment & Plan Admission and Anticipated Discharge Date Admission Date: March 06, 2020 Subjective Patient is reevaluated. She feels well no complaints Vaginal exam, cervix is 4-5 cm/60%/ -1, coned head FHR categ I [place]: ctxs q -3 min, amplitude of 75MVU Rest of dilatation Arrest of dilatation, despite adequate contractions documented by [facility]. Discussed with the patient and expectant management versus delivery via C- section due to preeclampsia with severe features and on magnesium. She understands and she prefers delivery. Understands it is a mjor surgery, risks including but not limited to bleeding, infection, injury to surrounding organs like bowels bladder and ureters. Increased risk of blood clots in legs or lungs. Longer recovery, scarring and adhesions. Patient Understands all and signed an informed consent. All questions were answered. Results & Data ([facility]) Vital Signs (Past 12 Hours) Vital Signs Temp Pulse Resp BP Pulse Ox 03/07/20 21:46 107 H 97 03/07/20 21:41 100 H 96 03/07/20 21:38 94 H 94 03/07/20 21:36 102 H 94 03/07/20 21:35 111 H 154/91 H 03/07/20 21:32 98 H 94 03/07/20 21:31 94 H 94 03/07/20 21:30 18 03/07/20 21:26 103 H 95 03/07/20 21:21 106 H 95 03/07/20 21:20 104 H 152/89 H 94 03/07/20 21:16 98 H 93 03/07/20 21:11 100 H 94 03/07/20 21:08 103 H 94 03/07/20 21:06 105 H 96 03/07/20 21:05 103 H 160/88 H 03/07/20 21:01 109 H 95 03/07/20 21:00 18 03/07/20 20:56 110 H 96 03/07/20 20:54 100 H 94 03/07/20 20:51 99 H 158/85 H 94 03/07/20 20:46 107 H 94 03/07/20 20:41 95 H 94 03/07/20 20:36 101 H 157/93 H 95 03/07/20 20:35 96 H 94 03/07/20 20:31 110 H 96 03/07/20 20:30 18 03/07/20 20:26 104 H 94 03/07/20 20:21 99 H 96 03/07/20 20:20 109 H 153/94 H 03/07/20 20:17 105 H 94 03/07/20 20:16 97 H 95 03/07/20 20:11 104 H 96 03/07/20 20:07 98 H 158/95 H 03/07/20 20:06 95 H 95 03/07/20 20:01 100 H 96 03/07/20 20:00 18 03/07/20 19:56 99 H 97 03/07/20 19:51 103 H 97 03/07/20 19:50 97 H 149/90 H 03/07/20 19:46 99 H 96 03/07/20 19:41 102 H 97 03/07/20 19:36 108 H 156/92 H 97 03/07/20 19:31 96 H 96 03/07/20 19:30 18 03/07/20 19:26 98 H 97 03/07/20 19:21 96 H 156/96 H 97 03/07/20 19:16 97 H 96 03/07/20 19:15 36.9 C 18 03/07/20 19:11 105 H 97 03/07/20 19:09 89 94 03/07/20 19:06 91 H 94 03/07/20 19:05 89 139/82 03/07/20 19:03 90 94 03/07/20 19:01 93 H 94 03/07/20 18:57 91 H 94 03/07/20 18:56 88 94 03/07/20 18:52 92 H 94 03/07/20 18:51 93 H 134/84 94 03/07/20 18:46 94 H 94 03/07/20 18:41 89 95 03/07/20 18:39 89 94 03/07/20 18:36 88 96 03/07/20 18:35 93 H 144/88 H 03/07/20 18:31 97 H 96 03/07/20 18:26 90 96 03/07/20 18:21 100 H 97 03/07/20 18:20 93 H 142/87 H 03/07/20 18:16 88 97 03/07/20 18:11 91 H 96 03/07/20 18:06 90 147/87 H 96 03/07/20 18:01 91 H 20 97 03/07/20 17:56 93 H 96 03/07/20 17:51 100 H 97 03/07/20 17:50 96 H 137/86 03/07/20 17:46 90 97 03/07/20 17:41 91 H 98 03/07/20 17:36 100 H 97 03/07/20 17:35 96 H 143/91 H 03/07/20 17:31 91 H 96 03/07/20 17:26 95 H 97 03/07/20 17:21 94 H 142/92 H 97 03/07/20 17:16 95 H 97 03/07/20 17:11 123 H 96 03/07/20 17:06 116 H 156/88 H 97 03/07/20 17:01 110 H 98 03/07/20 17:00 37.3 C 20 03/07/20 16:56 115 H 97 03/07/20 16:51 115 H 153/74 H 97 03/07/20 16:46 107 H 96 03/07/20 16:45 109 H 165/102 H 03/07/20 16:41 109 H 98 03/07/20 16:40 112 H 189/107 H 03/07/20 16:36 104 H 97 03/07/20 16:31 111 H 97 03/07/20 16:30 113 H 169/92 H 03/07/20 16:26 114 H 97 03/07/20 16:25 117 H 150/76 H 03/07/20 16:23 139 H 147/87 H 03/07/20 16:21 138 H 97 03/07/20 16:19 110 H 151/76 H 03/07/20 16:16 113 H 155/82 H 96 03/07/20 16:12 109 H 156/84 H 03/07/20 16:11 116 H 98 03/07/20 16:10 113 H 150/79 H 03/07/20 16:07 120 H 156/102 H 03/07/20 16:06 118 H 96 03/07/20 16:03 116 H 168/98 H 03/07/20 16:01 120 H 20 96 03/07/20 15:56 119 H 97 03/07/20 15:51 125 H 96 03/07/20 15:46 126 H 98 03/07/20 15:41 112 H 97 03/07/20 15:36 112 H 97 03/07/20 15:31 114 H 97 03/07/20 15:29 37.6 C H 03/07/20 14:57 102 H 20 139/84 03/07/20 14:00 18 03/07/20 13:57 104 H 155/95 H 03/07/20 12:58 100 H 20 150/87 H 03/07/20 11:57 107 H 16 137/90 03/07/20 10:57 98 H 20 143/84 H 03/07/20 09:57 95 H 18 161/85 H
[2020-03-07] MEDS ORDERED: CITRIC ACID/SODIUM CITRATE 15 ML UDC PO SCH (22:00)
[2020-03-07] MEDS ORDERED: ceFAZolin 2000MG 2,000 MG/15 ML SYR IV SCH (22:00)
[2020-03-07] MEDS ORDERED: LACTATED RINGER'S 1,000 ML IV SCH (22:00)
[2020-03-07] MEDS ORDERED: LIDOCAINE/EPINEPHRINE 2% 1:200,000 20 ML SDV ONE (22:16)
[2020-03-07 22:28] LABS: Basophils # (auto) 0.01 K/uL (0-0.2); Basophils % (auto) 0.1 %; Eosinophils # (auto) 0.01 K/uL (0-0.5); Eosinophils % (auto) 0.1 %; Hematocrit (blood only) 35.1 % (37-47); Hemoglobin 12.2 g/dL (12.0-16.0); Immature Granulocytes # (auto) 0.06 K/uL (0.00-0.02); Immature Granulocytes % (auto) 0.3 %; Lymphocytes # (auto) 1.38 K/uL (1.2-3.4); Lymphocytes % (auto) 7.6 %; Mean Corpuscular Hgb Conc 34.8 g/dL (32-36); Mean Corpuscular Volume 86.2 fL (80-100); Mean Platelet Volume 10.5 fL (7.4-10.4); Monocytes # (auto) 1.32 K/uL (0.11-0.59); Monocytes % (auto) 7.3 %; Neutrophils # (auto) 15.34 K/uL (1.4-6.5); Neutrophils % (auto) 84.6 %; Platelet Count 269 K/uL (130-400); RDW Coefficient of Variation 12.4 % (11.5-14.5); RDW Standard Deviation 39.6 fL (36.4-46.3); Red Blood Count 4.07 M/uL (4.2-5.4); White Blood Count 18.12 K/uL (4.8-10.8)
[2020-03-07 22:42] LABS: Albumin Level 1.8 gm/dl (3.4-5.0); BUN Creatinine Ratio 9.9 (10-20); Creatinine Clr Calc Pharmacy 108.6 ml/min; Est GFR (African American) 126.6; Est GFR (Non-African American) 109.2; Potassium 3.9 mmol/L (3.5-5.1)
[2020-03-07 22:45] LABS: Albumin Globulin Ratio 0.5 (0.9-2); Bilirubin,Total 0.3 mg/dl (0.2-1); Globulin 3.7 gm/dl (2.5-4.0); Total Protein 5.5 gm/dl (6.4-8.2)
[2020-03-07] MEDS ORDERED: OXYTOCIN 10 UNITS/ML VIAL ONE ×5 (22:53→23:36)
[2020-03-07] MEDS ORDERED: ONDANSETRON INJ 2 MG/ML 2 ML VIAL ONE (22:59)
[2020-03-07] MEDS ORDERED: MoRPHine SULFATE PF 1 MG/ML 10 ML AMP/VIAL ONE (23:04)
[2020-03-07] MEDS ORDERED: METOCLOPRAMIDE HCL 10 MG in SODIUM CHLORIDE 0.9% 50 ML IV PRN (23:08)
[2020-03-07] MEDS ORDERED: PROMETHAZINE HCL 12.5 MG in SODIUM CHLORIDE 0.9% 50 ML IV PRN (23:08)
[2020-03-07] MEDS ORDERED: MEPERIDINE HCL 25 MG/ML CARP/VIAL IV PRN (23:08)
[2020-03-07] MEDS ORDERED: NALOXONE HCL 0.08 MG in SYRINGE 1.8 ML IV PRN (23:08)
[2020-03-07] MEDS ORDERED: HYDROmorphone INJ 0.5 MG/0.5 ML SYR IV PRN (23:08)
[2020-03-07] MEDS ORDERED: LACTATED RINGER'S 500 ML IV PRN (23:08)
[2020-03-07] MEDS ORDERED: MoRPHine SULFATE PF 1 MG/ML 10 ML AMP/VIAL INT SPINAL ONE (23:08)
[2020-03-07] MEDS ORDERED: MoRPHine SULFATE 2 MG/ML CARP IV PRN (23:08)
[2020-03-07] MEDS ORDERED: KETOROLAC 30 MG/ML VIAL IV PRN (23:08)
[2020-03-07] MEDS ORDERED: ACETAMINOPHEN 1,000 MG/100 ML VIAL IV PRN (23:10)
[2020-03-07] MEDS ORDERED: NO NARCOTICS OR SEDATIVES SCH (23:15)
[2020-03-07] MEDS ORDERED: SODIUM CHLORIDE 0.9% 1000ML 1,000 ML IV SCH (23:15)
[2020-03-07] MEDS ORDERED: DC INTRASPINAL MORPHINE SCH (23:15)
[2020-03-07] MEDS ORDERED: DIPHTHERIA/TETANUS/PERTUSSIS 0.5 ML SYR/VIAL IM ONE (23:43)
[2020-03-07] MEDS ORDERED: BENZOCAINE 20% AER SPR 82.5 GM CAN EXT PRN (23:43)
[2020-03-07] MEDS ORDERED: SUPERCREAM 0.870% 15 GM JAR EXT PRN (23:43)
[2020-03-07] MEDS ORDERED: SENNA 8.6 MG TAB PO PRN (23:43)
[2020-03-07] MEDS ORDERED: MEASLES, MUMPS & RUBELLA VIRUS VIAL SQ ONE (23:43)
[2020-03-07] MEDS ORDERED: HYDROCORTISONE ACETATE 25 MG SUPP PR PRN (23:43)
[2020-03-07] MEDS ORDERED: MAGNESIUM HYDROXIDE SUSP 30 ML UDC PO PRN (23:43)
--- NOTE | 2020-03-07 23:43 | Post Operative Brief Note ---
Immediate Post Op Note v1 Date of Surgery March 07, 2020 Pre & Post Diagnosis Operation Date: 03/07/20 21:50 Pre-Op Diagnosis: Arrest of Dilation; Preeclampsia with Severe Feature; Magnesium Sulfate Prophylaxis Post-Op Diagnosis: Arrest of Dilation; Preeclampsia with Severe Feature; Magnesium Sulfate Prophylaxis I identified the patient and participated in the time-out.: Yes Procedure Operation Date: 03/07/20 21:50 Actual Procedures p Section in LD(Bilateral) - Phani Pizano MD Surgeon Phani Pizano MD Lathe Hand Nigel Mcneal RN Estimated Blood Loss 600 Findings Consistent with Post-Op Diagnosis Drains Peres Catheter (Inserted prior to procedure and output monitored by anesthesia ) Anesthesia Type Labor Epidural Complications none Disposition Accompanied Patient To Recovery: Yes Disposition: L&D
--- NOTE | 2020-03-07 23:53 | Anesthesia Procedure Note ---
Date of Service March 07, 2020 Anesthesia Post Epidural Note Vital Signs Vital Signs: Temp Pulse Resp BP Pulse Ox 36.9 C 101 H 18 118/99 96 03/07/20 21:35 03/07/20 23:50 03/07/20 23:33 03/07/20 23:50 03/07/20 23:49 Pain Intensity Lower Abdomen: Pain Intensity: 0 Notes Mental Status: alert / awake / arousable Nausea / Vomiting: adequately controlled Pain: adequately controlled Airway Patency, RR, SpO2: stable & adequate BP & HR: stable & adequate Hydration State: stable & adequate Neuraxial Anesthesia: was administered and sensory block is resolving Anesthetic Complications: no major complications apparent and Pt Satisfied with anesthetic care Epidural: Removed without complications and With tip intact
[2020-03-08] MEDS ORDERED: OXYTOCIN 20 UNITS in D5W AND LACTATED RINGERS 1,000 ML IV SCH
--- NOTE | 2020-03-08 00:42 | Operative Report (OR) ---
DATE OF OPERATION: 03/07/2020 PREOPERATIVE DIAGNOSES: The patient is a 25-year-old G1, P0 at 36 weeks and 4 days of gestation, admitted for preeclampsia with severe features, induction of labor since yesterday. On magnesium sulfate for seizure prophylaxis. Arrest of dilatation at active stage of labor despite adequate uterine contractions documented by [facility]. POSTOPERATIVE DIAGNOSES: The patient is a 25-year-old G1, P0 at 36 weeks and 4 days of gestation, admitted for preeclampsia with severe features, induction of labor since yesterday. On magnesium sulfate for seizure prophylaxis. Arrest of dilatation at active stage of labor despite adequate uterine contractions documented by [facility]. PROCEDURE: Primary low transverse with Pfannenstiel skin incision. SURGEON: Phani Pizano MD MALT ROASTER: Denise Mcneal RN ESTIMATED BLOOD LOSS: 600 mL. DRAINS: Peres catheter drained 250 mL of urine. ANESTHESIA: Labor epidural. ANESTHESIOLOGIST: Abel Vivas MD COMPLICATIONS: None. FINDINGS: Baby was a viable male delivered at 2252 hours. Apgars were 9/9. Head in cephalic presentation, weight was 2400 grams. Maternal findings, diffuse lower extremity edema, vulvar edema. Normal uterus, fallopian tubes, and ovaries. DESCRIPTION OF PROCEDURE: The patient was taken to the Operating Room where epidural anesthesia was found to be adequate. She was placed in dorsal supine position with a leftward tilt. She was prepared and draped in usual sterile fashion. Pfannenstiel skin incision was made and carried through to the underlying layer of fascia with the Bovie. Fascia was incised in the midline and incision was entered and extended laterally with the help of Montero scissors. Upper aspect of the fascial incision was then grasped with 2 Otis clamps, elevated. Underlying rectus muscles were dissected off sharply with Montero scissors. Lower aspect of the fascial incision was then grasped with 2 Otis clamps, elevated, underlying rectus muscles were dissected off sharply with Montero scissors. Rectus muscles were in the midline. Peritoneum was entered bluntly with fingers. Peritoneal incision was extended superiorly and inferiorly with good visualization of the bladder. Bladder blade was inserted. Vesicouterine peritoneum was identified, grasped with pickups, entered sharply with Metzenbaum scissors. Bladder flap was created digitally and bladder blade was reinserted. Lower uterine segment was incised in transverse fashion, incision was extended laterally with the help of bandage scissors. Membranes were ruptured. Clear fluid was obtained. Baby's head was delivered without difficulty. Shoulders came with minimal traction. Mouth and nose were suctioned. Cord was clamped x2 and cut and baby was handed off to the waiting pediatric team. Cord blood was obtained. Placenta was delivered manually as intact and complete. Uterus was cleared from debris. The uterine incision was repaired with 0 Vicryl in a running locked fashion and a second imbricating layer was placed with 0 Vicryl in a running locked fashion and excellent hemostasis was achieved. Both ovaries and fallopian tubes were checked to be normal. Pelvis was irrigated with warm normal saline and suctioned. Uterine incision was checked to be hemostatic again. Parietal peritoneum was reapproximated with 3-0 Vicryl in a running fashion. Rectus fascia was reapproximated with the same suture in a running fashion and it was hemostatic. Rectus fascia was reapproximated with 0 Vicryl in a running fashion. Subcuticular fat tissue was brought together with 3-0 Vicryl in a running fashion. Skin was closed with 4-0 Monocryl in a subcuticular fashion. The patient tolerated the procedure well. Sponge, lap, needle count was correct x3. She was given 2 grams of cefazolin and 500 mg of azithromycin before surgery. She was taken to recovery room in stable condition. No complications happened and I was present during whole procedure. I attest to the content of the Intraoperative Record and any orders documented therein. Any exceptions are noted below. KEM
--- NOTE | 2020-03-08 04:08 | Obstetrical Progress Note ---
Date of Service March 08, 2020 Assessment & Plan Admission and Anticipated Discharge Date Admission Date: March 06, 2020 Subjective Postop check Patient is seen and examined Feels well, no complaints Pain is under control with meds No CP/ SOB/ Dizziness/SALDIVAR/Change om vision/ N&V/ VB/ Leg pain Not OOB yet Tolerating clears Vital Signs Height Weight Body Mass Index Blood Pressure Temperature Pulse Rate Respiratory Rate 5 ft 84.368 kg 35.5 125/76 36.9 C 79 18 03/07/20 15:47 03/07/20 15:47 03/06/20 16:11 03/08/20 03:19 03/08/20 01:40 03/08/20 04:04 03/08/20 02:10 Pulse Oximetry 88 L 03/08/20 04:04 Intake & Output 03/07/20 03/07/20 03/08/20 14:59 22:59 06:59 Intake Total 1912.159 / 4384.284 2011.500 / 4384.284 460.625 / 4384.284 Output Total 350 / 900 350 / 900 200 / 900 Balance 1562.159 / 3484.284 1661.500 / 3484.284 260.625 / 3484.284 Weight 84.368 kg Intake: IV 1912.159 / 4384.284 2010.500 / 4384.284 460.625 / 4384.284 D5w and Lactated Ringers 1,000 664.875 / 664.875 ml @ 150 mls/hr IV .Q6H40M EMMY Rx#:[id number] Lr 1,000 ml @ 125 mls/hr IV . 852.083 / 6039.692 6789.625 / 1917.708 Q8H PRN Rx#:[id number] MAGNESIUM SULFATE / WTR 40 gm 800.209 / 1260.834 460.625 / 1260.834 In 1,000 ml @ 25 mls/hr IV . Q24H EMMY Rx#:[id number] PITOCIN 30 units In 500 ml @ 0 47.867 / 222.867 175 / 222.867 UNITS/HR IV .Q0M PRN Rx#: [id number] Pfizerpen 3 Mu In D5 100 ml @ 212 / 318 106 / 318 100 mls/hr IV Q4H PRN Rx#: [id number] Output: Urine Amount (Catheter) 350 / 900 350 / 900 200 / 900 Peres/Indwelling 350 / 900 350 / 900 200 / 900 UOP 200 ml in 2 hours 02 sat had been reading 88-92% on her toe, she was sleeping on and off Moved to left finger, 95% then to 92% Patient is asymptomatic, inspirex started and Nasal 02 2 lt: improved to 97% PE: General: Alert, orientedx3, NAD CVS: S1S2 RRR Lungs: CTAB Abd: soft, NT, ND, BS+, fundus firm, below U, Dressing C/D/I No VB Ext: NT, same edema, SCD's on AP: 25 yo female s/p Primary Csection , pod#0, preeclampsia with severe features ( BP criteria) VSS Afebrile doing well On Magnesium seizure prophylaxis, 24 hours postop Labetalol PO Continue to monitor closely Results & Data ([facility]) Vital Signs (Past 12 Hours) Vital Signs Temp Pulse Resp BP Pulse Ox 03/08/20 04:04 79 03/08/20 03:59 83 90 03/08/20 03:54 81 91 03/08/20 03:49 85 93 03/08/20 03:44 92 H 86 L 03/08/20 03:42 84 88 L 03/08/20 03:39 96 H 90 03/08/20 03:34 84 85 L 03/08/20 03:29 87 85 L 03/08/20 03:24 83 88 L 03/08/20 03:19 91 H 125/76 88 L 03/08/20 03:14 85 89 L 03/08/20 03:13 85 88 L 03/08/20 03:09 81 89 L 03/08/20 03:04 79 92 03/08/20 03:02 83 88 L 03/08/20 02:59 84 90 03/08/20 02:54 96 H 91 03/08/20 02:52 96 H 88 L 03/08/20 02:49 87 89 L 03/08/20 02:47 86 88 L 03/08/20 02:44 82 91 03/08/20 02:39 88 90 03/08/20 02:34 89 91 03/08/20 02:29 86 91 03/08/20 02:24 85 92 03/08/20 02:19 95 H 93 03/08/20 02:17 88 122/66 88 L 03/08/20 02:14 84 88 L 03/08/20 02:12 86 88 L 03/08/20 02:10 18 03/08/20 02:09 83 91 03/08/20 02:07 85 131/72 03/08/20 02:04 84 93 03/08/20 01:59 86 92 03/08/20 01:57 78 132/72 03/08/20 01:54 82 92 03/08/20 01:50 85 130/72 03/08/20 01:49 93 H 95 03/08/20 01:44 94 H 95 03/08/20 01:40 36.9 C 18 03/08/20 01:39 89 93 03/08/20 01:37 90 133/75 03/08/20 01:34 90 95 03/08/20 01:29 86 94 03/08/20 01:27 90 136/74 03/08/20 01:24 98 H 93 03/08/20 01:19 96 H 95 03/08/20 01:17 90 142/80 H 03/08/20 01:14 92 H 93 03/08/20 01:10 18 03/08/20 01:09 93 H 93 03/08/20 01:07 92 H 150/83 H 03/08/20 01:04 99 H 93 03/08/20 01:00 18 03/08/20 00:59 93 H 93 03/08/20 00:57 90 148/86 H 03/08/20 00:54 97 H 94 03/08/20 00:50 18 03/08/20 00:49 93 H 92 03/08/20 00:47 90 149/85 H 03/08/20 00:44 97 H 93 03/08/20 00:40 18 03/08/20 00:39 95 H 93 03/08/20 00:37 96 H 150/86 H 03/08/20 00:34 96 H 94 03/08/20 00:30 18 03/08/20 00:29 97 H 94 03/08/20 00:27 98 H 142/91 H 03/08/20 00:26 91 H 150/90 H 03/08/20 00:25 96 H 164/93 H 03/08/20 00:24 97 H 96 03/08/20 00:20 18 03/08/20 00:19 98 H 94 03/08/20 00:18 99 H 156/96 H 03/08/20 00:14 99 H 94 03/08/20 00:13 96 H 94 03/08/20 00:10 37.3 C 18 03/08/20 00:09 95 H 95 03/08/20 00:08 95 H 149/105 H 94 03/08/20 00:04 99 H 95 03/07/20 23:59 100 H 96 03/07/20 23:54 99 H 97 03/07/20 23:50 101 H 118/99 03/07/20 23:49 101 H 96 03/07/20 23:33 18 03/07/20 22:28 103 H 153/88 H 03/07/20 22:26 105 H 176/99 H 03/07/20 22:21 123 H 96 03/07/20 22:20 172/91 H 03/07/20 22:19 113 H 90 03/07/20 22:16 99 H 97 03/07/20 22:11 100 H 97 03/07/20 22:06 96 H 96 03/07/20 22:05 96 H 154/86 H 03/07/20 22:01 101 H 96 03/07/20 22:00 18 03/07/20 21:56 103 H 97 03/07/20 21:55 119 H 93 03/07/20 21:51 103 H 97 03/07/20 21:50 105 H 161/98 H 03/07/20 21:46 107 H 97 03/07/20 21:41 100 H 96 03/07/20 21:38 94 H 94 03/07/20 21:36 102 H 94 03/07/20 21:35 36.9 C 111 H 154/91 H 03/07/20 21:32 98 H 94 03/07/20 21:31 94 H 94 03/07/20 21:30 18 03/07/20 21:26 103 H 95 03/07/20 21:21 106 H 95 03/07/20 21:20 104 H 152/89 H 94 03/07/20 21:16 98 H 93 03/07/20 21:11 100 H 94 03/07/20 21:08 103 H 94 03/07/20 21:06 105 H 96 03/07/20 21:05 103 H 160/88 H 03/07/20 21:01 109 H 95 03/07/20 21:00 18 03/07/20 20:56 110 H 96 03/07/20 20:54 100 H 94 03/07/20 20:51 99 H 158/85 H 94 03/07/20 20:46 107 H 94 03/07/20 20:41 95 H 94 03/07/20 20:36 101 H 157/93 H 95 03/07/20 20:35 96 H 94 03/07/20 20:31 110 H 96 03/07/20 20:30 18 03/07/20 20:26 104 H 94 03/07/20 20:21 99 H 96 03/07/20 20:20 109 H 153/94 H 03/07/20 20:17 105 H 94 03/07/20 20:16 97 H 95 03/07/20 20:11 104 H 96 03/07/20 20:07 98 H 158/95 H 03/07/20 20:06 95 H 95 03/07/20 20:01 100 H 96 03/07/20 20:00 18 03/07/20 19:56 99 H 97 03/07/20 19:51 103 H 97 03/07/20 19:50 97 H 149/90 H 03/07/20 19:46 99 H 96 03/07/20 19:41 102 H 97 03/07/20 19:36 108 H 156/92 H 97 03/07/20 19:31 96 H 96 03/07/20 19:30 18 03/07/20 19:26 98 H 97 03/07/20 19:21 96 H 156/96 H 97 03/07/20 19:16 97 H 96 03/07/20 19:15 36.9 C 18 03/07/20 19:11 105 H 97 03/07/20 19:09 89 94 03/07/20 19:06 91 H 94 03/07/20 19:05 89 139/82 03/07/20 19:03 90 94 03/07/20 19:01 93 H 94 03/07/20 18:57 91 H 94 03/07/20 18:56 88 94 03/07/20 18:52 92 H 94 03/07/20 18:51 93 H 134/84 94 03/07/20 18:46 94 H 94 03/07/20 18:41 89 95 03/07/20 18:39 89 94 03/07/20 18:36 88 96 03/07/20 18:35 93 H 144/88 H 03/07/20 18:31 97 H 96 03/07/20 18:26 90 96 03/07/20 18:21 100 H 97 03/07/20 18:20 93 H 142/87 H 03/07/20 18:16 88 97 03/07/20 18:11 91 H 96 03/07/20 18:06 90 147/87 H 96 03/07/20 18:01 91 H 20 97 03/07/20 17:56 93 H 96 03/07/20 17:51 100 H 97 03/07/20 17:50 96 H 137/86 03/07/20 17:46 90 97 03/07/20 17:41 91 H 98 03/07/20 17:36 100 H 97 03/07/20 17:35 96 H 143/91 H 03/07/20 17:31 91 H 96 03/07/20 17:26 95 H 97 03/07/20 17:21 94 H 142/92 H 97 03/07/20 17:16 95 H 97 03/07/20 17:11 123 H 96 03/07/20 17:06 116 H 156/88 H 97 03/07/20 17:01 110 H 98 03/07/20 17:00 37.3 C 20 03/07/20 16:56 115 H 97 03/07/20 16:51 115 H 153/74 H 97 03/07/20 16:46 107 H 96 03/07/20 16:45 109 H 165/102 H 03/07/20 16:41 109 H 98 03/07/20 16:40 112 H 189/107 H 03/07/20 16:36 104 H 97 03/07/20 16:31 111 H 97 03/07/20 16:30 113 H 169/92 H 03/07/20 16:26 114 H 97 03/07/20 16:25 117 H 150/76 H 03/07/20 16:23 139 H 147/87 H 03/07/20 16:21 138 H 97 03/07/20 16:19 110 H 151/76 H 03/07/20 16:16 113 H 155/82 H 96 03/07/20 16:12 109 H 156/84 H 03/07/20 16:11 116 H 98 03/07/20 16:10 113 H 150/79 H 03/07/20 16:07 120 H 156/102 H 03/07/20 16:06 118 H 96
--- NOTE | 2020-03-08 06:07 | Anesthesiology Progress Note ---
Date of Service March 08, 2020 Anesthesia Post Procedure Vital Signs Vital Signs: Temp Pulse Resp BP Pulse Ox 03/08/20 06:05 89 94 03/08/20 06:00 78 94 03/08/20 05:55 81 94 03/08/20 05:50 79 93 03/08/20 05:45 79 93 03/08/20 05:40 80 93 03/08/20 05:35 76 93 03/08/20 05:30 75 18 93 03/08/20 05:25 85 96 03/08/20 05:20 78 93 03/08/20 05:19 83 159/86 H 03/08/20 05:15 83 92 03/08/20 05:10 87 95 03/08/20 05:05 78 93 03/08/20 05:00 82 18 94 03/08/20 04:55 84 95 03/08/20 04:50 79 92 03/08/20 04:45 73 96 03/08/20 04:40 81 94 03/08/20 04:35 93 H 97 03/08/20 04:30 87 18 95 03/08/20 04:25 85 83 L 03/08/20 04:20 95 H 90 03/08/20 04:19 78 142/90 H 87 L 03/08/20 04:15 86 89 L 03/08/20 04:12 88 88 L 03/08/20 04:10 90 91 03/08/20 04:04 79 88 L 03/08/20 04:00 18 03/08/20 03:59 83 90 03/08/20 03:54 81 91 03/08/20 03:49 85 93 03/08/20 03:44 92 H 86 L 03/08/20 03:42 84 88 L 03/08/20 03:39 96 H 90 03/08/20 03:34 84 85 L 03/08/20 03:30 18 03/08/20 03:29 87 85 L 03/08/20 03:24 83 88 L 03/08/20 03:19 91 H 125/76 88 L 03/08/20 03:14 85 89 L 03/08/20 03:13 85 88 L 03/08/20 03:09 81 89 L 03/08/20 03:04 79 92 03/08/20 03:02 83 88 L 03/08/20 02:59 84 90 03/08/20 02:54 96 H 91 03/08/20 02:52 96 H 88 L 03/08/20 02:49 87 89 L 03/08/20 02:47 86 88 L 03/08/20 02:44 82 91 03/08/20 02:39 88 90 03/08/20 02:34 89 91 03/08/20 02:29 86 91 03/08/20 02:24 85 92 03/08/20 02:19 95 H 93 03/08/20 02:17 88 122/66 88 L 03/08/20 02:14 84 88 L 03/08/20 02:12 86 88 L 03/08/20 02:10 18 03/08/20 02:09 83 91 03/08/20 02:07 85 131/72 03/08/20 02:04 84 93 03/08/20 01:59 86 92 03/08/20 01:57 78 132/72 03/08/20 01:54 82 92 03/08/20 01:50 85 130/72 03/08/20 01:49 93 H 95 03/08/20 01:44 94 H 95 03/08/20 01:40 36.9 C 18 03/08/20 01:39 89 93 03/08/20 01:37 90 133/75 03/08/20 01:34 90 95 03/08/20 01:29 86 94 03/08/20 01:27 90 136/74 03/08/20 01:24 98 H 93 03/08/20 01:19 96 H 95 03/08/20 01:17 90 142/80 H 03/08/20 01:14 92 H 93 03/08/20 01:10 18 03/08/20 01:09 93 H 93 03/08/20 01:07 92 H 150/83 H 03/08/20 01:04 99 H 93 03/08/20 01:00 18 03/08/20 00:59 93 H 93 03/08/20 00:57 90 148/86 H 03/08/20 00:54 97 H 94 03/08/20 00:50 18 03/08/20 00:49 93 H 92 03/08/20 00:47 90 149/85 H 03/08/20 00:44 97 H 93 03/08/20 00:40 18 03/08/20 00:39 95 H 93 03/08/20 00:37 96 H 150/86 H 03/08/20 00:34 96 H 94 03/08/20 00:30 18 03/08/20 00:29 97 H 94 03/08/20 00:27 98 H 142/91 H 03/08/20 00:26 91 H 150/90 H 03/08/20 00:25 96 H 164/93 H 03/08/20 00:24 97 H 96 03/08/20 00:20 18 03/08/20 00:19 98 H 94 03/08/20 00:18 99 H 156/96 H 03/08/20 00:14 99 H 94 03/08/20 00:13 96 H 94 03/08/20 00:10 37.3 C 18 03/08/20 00:09 95 H 95 03/08/20 00:08 95 H 149/105 H 94 03/08/20 00:04 99 H 95 03/07/20 23:59 100 H 96 03/07/20 23:54 99 H 97 03/07/20 23:50 101 H 118/99 03/07/20 23:49 101 H 96 03/07/20 23:33 18 03/07/20 22:28 103 H 153/88 H 03/07/20 22:26 105 H 176/99 H 03/07/20 22:21 123 H 96 03/07/20 22:20 172/91 H 03/07/20 22:19 113 H 90 03/07/20 22:16 99 H 97 03/07/20 22:11 100 H 97 03/07/20 22:06 96 H 96 03/07/20 22:05 96 H 154/86 H 03/07/20 22:01 101 H 96 03/07/20 22:00 18 03/07/20 21:56 103 H 97 03/07/20 21:55 119 H 93 03/07/20 21:51 103 H 97 03/07/20 21:50 105 H 161/98 H 03/07/20 21:46 107 H 97 03/07/20 21:41 100 H 96 03/07/20 21:38 94 H 94 03/07/20 21:36 102 H 94 03/07/20 21:35 36.9 C 111 H 154/91 H 03/07/20 21:32 98 H 94 03/07/20 21:31 94 H 94 03/07/20 21:30 18 03/07/20 21:26 103 H 95 03/07/20 21:21 106 H 95 03/07/20 21:20 104 H 152/89 H 94 03/07/20 21:16 98 H 93 03/07/20 21:11 100 H 94 03/07/20 21:08 103 H 94 03/07/20 21:06 105 H 96 03/07/20 21:05 103 H 160/88 H 03/07/20 21:01 109 H 95 03/07/20 21:00 18 03/07/20 20:56 110 H 96 03/07/20 20:54 100 H 94 03/07/20 20:51 99 H 158/85 H 94 03/07/20 20:46 107 H 94 03/07/20 20:41 95 H 94 03/07/20 20:36 101 H 157/93 H 95 03/07/20 20:35 96 H 94 03/07/20 20:31 110 H 96 03/07/20 20:30 18 03/07/20 20:26 104 H 94 03/07/20 20:21 99 H 96 03/07/20 20:20 109 H 153/94 H 03/07/20 20:17 105 H 94 03/07/20 20:16 97 H 95 03/07/20 20:11 104 H 96 03/07/20 20:07 98 H 158/95 H 03/07/20 20:06 95 H 95 03/07/20 20:01 100 H 96 03/07/20 20:00 18 03/07/20 19:56 99 H 97 03/07/20 19:51 103 H 97 03/07/20 19:50 97 H 149/90 H 03/07/20 19:46 99 H 96 03/07/20 19:41 102 H 97 03/07/20 19:36 108 H 156/92 H 97 03/07/20 19:31 96 H 96 03/07/20 19:30 18 03/07/20 19:26 98 H 97 03/07/20 19:21 96 H 156/96 H 97 03/07/20 19:16 97 H 96 03/07/20 19:15 36.9 C 18 03/07/20 19:11 105 H 97 03/07/20 19:09 89 94 03/07/20 19:06 91 H 94 03/07/20 19:05 89 139/82 03/07/20 19:03 90 94 03/07/20 19:01 93 H 94 03/07/20 18:57 91 H 94 03/07/20 18:56 88 94 03/07/20 18:52 92 H 94 03/07/20 18:51 93 H 134/84 94 03/07/20 18:46 94 H 94 03/07/20 18:41 89 95 03/07/20 18:39 89 94 03/07/20 18:36 88 96 03/07/20 18:35 93 H 144/88 H 03/07/20 18:31 97 H 96 03/07/20 18:26 90 96 03/07/20 18:21 100 H 97 03/07/20 18:20 93 H 142/87 H 03/07/20 18:16 88 97 03/07/20 18:11 91 H 96 03/07/20 18:06 90 147/87 H 96 03/07/20 18:01 91 H 20 97 03/07/20 17:56 93 H 96 03/07/20 17:51 100 H 97 03/07/20 17:50 96 H 137/86 03/07/20 17:46 90 97 03/07/20 17:41 91 H 98 03/07/20 17:36 100 H 97 03/07/20 17:35 96 H 143/91 H 03/07/20 17:31 91 H 96 03/07/20 17:26 95 H 97 03/07/20 17:21 94 H 142/92 H 97 03/07/20 17:16 95 H 97 03/07/20 17:11 123 H 96 03/07/20 17:06 116 H 156/88 H 97 03/07/20 17:01 110 H 98 03/07/20 17:00 37.3 C 20 03/07/20 16:56 115 H 97 03/07/20 16:51 115 H 153/74 H 97 03/07/20 16:46 107 H 96 03/07/20 16:45 109 H 165/102 H 03/07/20 16:41 109 H 98 03/07/20 16:40 112 H 189/107 H 03/07/20 16:36 104 H 97 03/07/20 16:31 111 H 97 03/07/20 16:30 113 H 169/92 H 03/07/20 16:26 114 H 97 03/07/20 16:25 117 H 150/76 H 03/07/20 16:23 139 H 147/87 H 03/07/20 16:21 138 H 97 03/07/20 16:19 110 H 151/76 H 03/07/20 16:16 113 H 155/82 H 96 03/07/20 16:12 109 H 156/84 H 03/07/20 16:11 116 H 98 03/07/20 16:10 113 H 150/79 H 03/07/20 16:07 120 H 156/102 H 03/07/20 16:06 118 H 96 03/07/20 16:03 116 H 168/98 H 03/07/20 16:01 120 H 20 96 03/07/20 15:56 119 H 97 03/07/20 15:51 125 H 96 03/07/20 15:46 126 H 98 03/07/20 15:41 112 H 97 03/07/20 15:36 112 H 97 03/07/20 15:31 114 H 97 03/07/20 15:29 37.6 C H 03/07/20 14:57 102 H 20 139/84 03/07/20 14:00 18 03/07/20 13:57 104 H 155/95 H 03/07/20 12:58 100 H 20 150/87 H 03/07/20 11:57 107 H 16 137/90 03/07/20 10:57 98 H 20 143/84 H 03/07/20 09:57 95 H 18 161/85 H 03/07/20 08:57 99 H 20 139/73 03/07/20 07:58 102 H 20 138/90 03/07/20 07:11 36.7 C 109 H 18 156/89 H 03/07/20 06:57 103 H 136/88 Pain Intensity Lower Abdomen: Pain Intensity: 3 Transfer of Care Handoff Completed per policy Notes Mental Status: alert / awake / arousable and participated in evaluation Patient Amnestic to Procedure: Yes Nausea / Vomiting: adequately controlled Pain: adequately controlled Airway Patency, RR, SpO2: stable & adequate BP & HR: stable & adequate Hydration State: stable & adequate Neuraxial Anesthesia: was administered and sensory block is resolving Anesthetic Complications: no major complications apparent
[2020-03-08 06:27] LABS: Eosinophils # (auto) 0.01 K/uL (0-0.5); Eosinophils % (auto) 0.1 %; Hematocrit (blood only) 30.5 % (37-47); Hemoglobin 10.4 g/dL (12.0-16.0); Immature Granulocytes # (auto) 0.03 K/uL (0.00-0.02); Immature Granulocytes % (auto) 0.2 %; Lymphocytes # (auto) 1.55 K/uL (1.2-3.4); Lymphocytes % (auto) 9.2 %; Mean Corpuscular Hemoglobin 29.5 pg (25-34); Mean Corpuscular Hgb Conc 34.1 g/dL (32-36); Mean Corpuscular Volume 86.4 fL (80-100); Mean Platelet Volume 10.4 fL (7.4-10.4); Monocytes # (auto) 1.59 K/uL (0.11-0.59); Monocytes % (auto) 9.4 %; Neutrophils # (auto) 13.69 K/uL (1.4-6.5); Neutrophils % (auto) 81.1 %; Platelet Count 240 K/uL (130-400); RDW Coefficient of Variation 12.4 % (11.5-14.5); RDW Standard Deviation 39.1 fL (36.4-46.3); Red Blood Count 3.53 M/uL (4.2-5.4); White Blood Count 16.87 K/uL (4.8-10.8)
[2020-03-08 07:27] LABS: Albumin Globulin Ratio 0.5 (0.9-2); Albumin Level 1.5 gm/dl (3.4-5.0); Bilirubin,Total 0.2 mg/dl (0.2-1); Est GFR (African American) 145.6; Est GFR (Non-African American) 125.6; Globulin 3.2 gm/dl (2.5-4.0); Magnesium 5.3 mg/dl (1.8-2.4); Potassium 4.3 mmol/L (3.5-5.1); Total Protein 4.7 gm/dl (6.4-8.2)
[2020-03-08] MEDS ORDERED: OXYTOCIN 20 UNITS in LACTATED RINGER'S 1,000 ML IV SCH (08:00)
[2020-03-08] MEDS: LABETALOL HCL 100 MG TAB PO SCH ×2 (08:32→21:24)
[2020-03-08] MEDS: FERROUS SULFATE 325 MG TAB PO SCH (08:32)
[2020-03-08] MEDS: PRENATAL VITAMIN 1 TAB PO SCH (08:32)
[2020-03-08] MEDS: DOCUSATE SODIUM 100 MG CAP PO SCH ×2 (08:32→21:24)
[2020-03-08] MEDS: SIMETHICONE 80 MG CHEW PO SCH ×4 (08:38→21:23)
[2020-03-08] MEDS: D5W AND LACTATED RINGERS 1,000 ML IV SCH (08:39)
[2020-03-08] MEDS: LACTATED RINGER'S 1,000 ML IV SCH (08:40)
--- NOTE | 2020-03-08 08:55 | Hospitalist Consultation ---
Date of Consultation March 08, 2020 Assessment & Plan (1) Hypoxia: -POD #0 -Noted to have hypoxia this morning at 83% on room air, patient asymptomatic. Currently saturating well on 2 L of oxygen via nasal cannula -CTA chest to R/O PE -? Volume overload, may need Lasix -Hypoventilation from pain medications may be contributing as well -Consider repeat COVID testing pending results of CT scan (2) S/P : (3) Pre-eclampsia during in third trimester, antepartum: -POD #0 -EBL 600 cc, Hgb stable at 10.4 -On labetalol for preeclampsia, BP 139/82 - and preeclampsia management as per MANAGER HOUSE (4) GDM (gestational diabetes mellitus): -Check Hgb A1c with morning labs -Monitor BSG (5) DVT prophylaxis: -SCDs as per MANAGER HOUSE Thank you for this consultation. We will follow the patient with you during their hospital stay. You can reach a member of the [facility] Hospitalist Team 12/09 via pager @ [phone]. Supervising Physician Co-Signing Physician Notes Patient is a 25-year-old female with history of gestational diabetes, preeclampsia was consulted from evaluation and management of hypoxia after having a . Patient was noted to be hypoxic in the 80s while on room air and improved to 90s while on 2 L nasal cannula. Patient denies any history of shortness of breath, cough, chest pain, dizziness. Please review HPI for complete details of presentation. CTA showed no signs of PE but showed findings suggestive of pulmonary edema, bilateral pleural effusion, diffuse body wall edema. She received IV fluids postoperatively. Echo showed normal ejection fraction. On exam patient is obese, no apparent distress, normocephalic atraumatic, lungs--normal breath sounds, basilar rales, no accessory muscle use, S1-S2, no murmur, abdomen soft, nontender, alert, awake, oriented, grossly no focal deficits,+ bilateral lower extremity edema. Acute respiratory failure with hypoxia secondary to volume overload. Given a dose of Lasix. Minimize IV fluids given volume overload. Minimize pain medications as able. Incentive spirometry. Continue supplemental oxygen as needed. Hyponatremia noted on labs. Likely secondary to volume overload. Monitor volume status closely, sodium levels. Will check HbA1c. Corrected calcium levels within normal limits. DVT Px as per Primary Team. I personally reviewed the record. Patient is interviewed and examined at bedside. Patient's care is coordinated with Charo Feng [employer]. Please refer to the documentation above for details of patient's presentation and for discussion of other issues. History of Present Illness Reason for Consultation: Hypoxia Requesting Physician: Dr. Pizano Attending Physician: Carlos Gibson MD History of Present Illness 25-year-old female with PMH gestational diabetes and other problems listed below who is POD#0 . Patient also had severe preeclampsia features. This morning, patient was noted to be hypoxic when oxygen was removed. Oxygen saturation dropped as low as 83%. Oxygen was reapplied at 2 L via nasal cannula and patient is currently saturating well. Patient denies any associated shortness of breath or chest pain. Reports incisional pain is well controlled. No lightheadedness, dizziness, diaphoresis, syncopal events. Denies abdominal pain, nausea, vomiting, diarrhea. No fevers or chills. Peres catheter is in place draining clear yellow urine. Allergies Allergy/AdvReac Type Severity Reaction Status Date / Time bee venom protein (honey bee) Allergy Mild Hives (BEE Verified 03/08/20 00:20 STINGS) Home Medications Medication Instructions Recorded Confirmed Type prenat.vits,monique,aim-gyky-bbbzi 1 tab PO DAILY 03/06/20 03/06/20 History [ Vitamin] Patient History Medical History GDM (gestational diabetes mellitus) Surgical History Banks teeth extracted Family History Mother Diabetes Social History Smoking Status: Never smoker Hx Alcohol Use: No Hx Substance Use: No Preferred Language: Mongolian Beliefs That Will Affect Care: None marital status: Current Living Situation: Spouse Other Information That Helps Us Care for You: No Feels Safe at Home: Yes Safety Concerns: Feels Safe At This Time Assistive Devices: None Review of Systems Review of Systems: ROS per HPI, all other systems reviewed and negative Physical Exam Constitutional: WD/WN, vitals as above Eyes: PERRL, conjunctivae normal, anicteric sclerae ENMT: external ear and nose normal, oropharynx normal Respiratory: normal respiratory effort; no respiratory distress Auscultation: + diminished lung sounds (Mild, bilateral bases) Cardiovascular: Rate/Rhythm: regular rate and regular rhythm Vessels: normal peripheral pulses Extremities: + pedal edema (+2 bilateral) Gastrointestinal (Abdomen): Inspection/Auscultation: normal bowel sounds Percussion/Palpation: + abdomen tender (Mild incisional tenderness) and abdomen soft; no hepatosplenomegaly Musculoskeletal: no cyanosis or clubbing, extremities motor strength 5/5 Skin: no rashes, warm and dry Neurologic: PERRL, EOMI, accommodation nl, no face palsy, no dysarthria Psychiatric: A+Ox3, euthymic affect Genitourinary: Peres in place draining clear yellow urine Results & Data Results & Data ([facility]) Vital Signs (Past 12 Hours) Vital Signs Temp Pulse Resp BP Pulse Ox 03/08/20 08:50 93 H 96 03/08/20 08:45 76 98 03/08/20 08:40 79 98 03/08/20 08:35 82 98 03/08/20 08:30 86 98 03/08/20 08:25 83 96 03/08/20 08:20 73 95 03/08/20 08:19 75 139/82 03/08/20 08:15 74 94 03/08/20 08:10 74 94 03/08/20 08:05 76 95 03/08/20 08:00 75 94 03/08/20 07:55 87 97 03/08/20 07:50 87 96 03/08/20 07:45 72 95 03/08/20 07:40 68 93 03/08/20 07:35 80 96 03/08/20 07:30 77 95 03/08/20 07:25 68 94 03/08/20 07:22 84 88 L 03/08/20 07:20 85 94 03/08/20 07:19 95 H 160/86 H 03/08/20 07:15 36.8 C 83 16 95 03/08/20 07:14 89 87 L 03/08/20 07:10 81 96 03/08/20 07:09 82 145/98 H 03/08/20 07:05 79 97 03/08/20 07:00 75 95 03/08/20 06:55 82 94 03/08/20 06:50 74 94 03/08/20 06:45 81 92 03/08/20 06:40 74 94 03/08/20 06:35 76 96 03/08/20 06:30 72 92 03/08/20 06:25 81 97 03/08/20 06:20 79 93 03/08/20 06:19 75 157/84 H 03/08/20 06:15 88 18 96 03/08/20 06:10 98 H 91 03/08/20 06:05 89 94 03/08/20 06:00 78 94 03/08/20 05:55 81 94 03/08/20 05:50 79 93 03/08/20 05:45 79 93 03/08/20 05:40 80 93 03/08/20 05:35 76 93 03/08/20 05:30 75 18 93 03/08/20 05:25 85 96 03/08/20 05:20 78 93 03/08/20 05:19 83 159/86 H 03/08/20 05:15 83 92 03/08/20 05:10 87 95 03/08/20 05:05 78 93 03/08/20 05:00 82 18 94 03/08/20 04:55 84 95 03/08/20 04:50 79 92 03/08/20 04:45 73 96 03/08/20 04:40 81 94 03/08/20 04:35 93 H 97 03/08/20 04:30 87 18 95 03/08/20 04:25 85 83 L 03/08/20 04:20 95 H 90 03/08/20 04:19 78 142/90 H 87 L 03/08/20 04:15 86 89 L 03/08/20 04:12 88 88 L 03/08/20 04:10 90 91 03/08/20 04:04 79 88 L 03/08/20 04:00 18 03/08/20 03:59 83 90 03/08/20 03:54 81 91 03/08/20 03:49 85 93 03/08/20 03:44 92 H 86 L 03/08/20 03:42 84 88 L 03/08/20 03:39 96 H 90 03/08/20 03:34 84 85 L 03/08/20 03:30 18 03/08/20 03:29 87 85 L 03/08/20 03:24 83 88 L 03/08/20 03:19 91 H 125/76 88 L 03/08/20 03:14 85 89 L 03/08/20 03:13 85 88 L 03/08/20 03:09 81 89 L 03/08/20 03:04 79 92 03/08/20 03:02 83 88 L 03/08/20 02:59 84 90 03/08/20 02:54 96 H 91 03/08/20 02:52 96 H 88 L 03/08/20 02:49 87 89 L 03/08/20 02:47 86 88 L 03/08/20 02:44 82 91 03/08/20 02:39 88 90 03/08/20 02:34 89 91 03/08/20 02:29 86 91 03/08/20 02:24 85 92 03/08/20 02:19 95 H 93 03/08/20 02:17 88 122/66 88 L 03/08/20 02:14 84 88 L 03/08/20 02:12 86 88 L 03/08/20 02:10 18 03/08/20 02:09 83 91 03/08/20 02:07 85 131/72 03/08/20 02:04 84 93 03/08/20 01:59 86 92 03/08/20 01:57 78 132/72 03/08/20 01:54 82 92 03/08/20 01:50 85 130/72 03/08/20 01:49 93 H 95 03/08/20 01:44 94 H 95 03/08/20 01:40 36.9 C 18 03/08/20 01:39 89 93 03/08/20 01:37 90 133/75 03/08/20 01:34 90 95 03/08/20 01:29 86 94 03/08/20 01:27 90 136/74 03/08/20 01:24 98 H 93 03/08/20 01:19 96 H 95 03/08/20 01:17 90 142/80 H 03/08/20 01:14 92 H 93 03/08/20 01:10 18 03/08/20 01:09 93 H 93 03/08/20 01:07 92 H 150/83 H 03/08/20 01:04 99 H 93 03/08/20 01:00 18 03/08/20 00:59 93 H 93 03/08/20 00:57 90 148/86 H 03/08/20 00:54 97 H 94 03/08/20 00:50 18 03/08/20 00:49 93 H 92 03/08/20 00:47 90 149/85 H 03/08/20 00:44 97 H 93 03/08/20 00:40 18 03/08/20 00:39 95 H 93 03/08/20 00:37 96 H 150/86 H 03/08/20 00:34 96 H 94 03/08/20 00:30 18 03/08/20 00:29 97 H 94 03/08/20 00:27 98 H 142/91 H 03/08/20 00:26 91 H 150/90 H 03/08/20 00:25 96 H 164/93 H 03/08/20 00:24 97 H 96 03/08/20 00:20 18 03/08/20 00:19 98 H 94 03/08/20 00:18 99 H 156/96 H 03/08/20 00:14 99 H 94 03/08/20 00:13 96 H 94 03/08/20 00:10 37.3 C 18 03/08/20 00:09 95 H 95 03/08/20 00:08 95 H 149/105 H 94 03/08/20 00:04 99 H 95 03/07/20 23:59 100 H 96 03/07/20 23:54 99 H 97 03/07/20 23:50 101 H 118/99 03/07/20 23:49 101 H 96 03/07/20 23:33 18 03/07/20 22:28 103 H 153/88 H 03/07/20 22:26 105 H 176/99 H 03/07/20 22:21 123 H 96 03/07/20 22:20 172/91 H 03/07/20 22:19 113 H 90 03/07/20 22:16 99 H 97 03/07/20 22:11 100 H 97 03/07/20 22:06 96 H 96 03/07/20 22:05 96 H 154/86 H 03/07/20 22:01 101 H 96 03/07/20 22:00 18 03/07/20 21:56 103 H 97 03/07/20 21:55 119 H 93 03/07/20 21:51 103 H 97 03/07/20 21:50 105 H 161/98 H 03/07/20 21:46 107 H 97 03/07/20 21:41 100 H 96 03/07/20 21:38 94 H 94 03/07/20 21:36 102 H 94 03/07/20 21:35 36.9 C 111 H 154/91 H 03/07/20 21:32 98 H 94 03/07/20 21:31 94 H 94 03/07/20 21:30 18 03/07/20 21:26 103 H 95 03/07/20 21:21 106 H 95 03/07/20 21:20 104 H 152/89 H 94 03/07/20 21:16 98 H 93 03/07/20 21:11 100 H 94 03/07/20 21:08 103 H 94 03/07/20 21:06 105 H 96 03/07/20 21:05 103 H 160/88 H 03/07/20 21:01 109 H 95 03/07/20 21:00 18 03/07/20 20:56 110 H 96 Laboratory Results Short CBC 03/07/20 03/08/20 Range/Units 22:18 06:12 WBC 18.12 H 16.87 H (4.8-10.8) K/uL Hgb 12.2 10.4 L (12.0-16.0) g/dL Hct 35.1 L 30.5 L (37-47) % Plt Count 269 240 (130-400) K/uL BMP 03/07/20 03/07/20 03/08/20 08:31 22:18 06:12 Sodium 133 L 132 L 130 L Potassium 4.1 3.9 4.3 Chloride 102 100 100 Carbon Dioxide 22 22 24 BUN 6 L 7 8 Creatinine 0.54 L 0.75 0.59 L Glucose 135 H Calcium 7.7 L 7.0 L 7.0 L Liver Function 03/07/20 03/07/20 03/08/20 Range/Units 08:31 22:18 06:12 Total Bilirubin 0.3 0.3 0.2 (0.2-1) mg/dl AST 12 L 13 L 12 L (15-37) U/L ALT 13 12 10 L (12-78) U/L Alkaline Phosphatase 187 H 178 H 149 H (45-117) U/L Albumin 2.1 L 1.8 L 1.5 L (3.4-5.0) gm/dl
[2020-03-08] MEDS ORDERED: OPTIRAY 320 125ml IV ONE (09:09)
--- NOTE | 2020-03-08 09:31 | CT Scan Report ---
CHEST CTA for PULMONARY ARTERIES CT DOSE: 403.07 mGy.cm HISTORY: Low O2 saturations. Recent . Assess for pulmonary embolus. TECHNIQUE: Multiaxial CT images of the chest were performed following the intravenous administration of contrast to evaluate the pulmonary arteries. Maximal intensity projection images were also obtaine d. A dose lowering technique was utilized adhering to the principles of ALARA. COMPARISON STUDY: None. FINDINGS: There are low lung volumes. The heart is top normal in size. There are small bilateral pleu ral effusions. Normal caliber thoracic aorta with no evidence for dissection. No filling defects with in the pulmonary arteries to suggest pulmonary embolus. Mild diffuse body wall edema. No mediastinal hilar lymphadenopathy. Normal esophagus. Limited views of the upper abdomen demonstrate a normal live r and spleen. No suspicious lytic or blastic osseous lesions. No pneumothorax. The central airways ar e patent. There is diffuse interlobular septal thickening consistent with pulmonary edema. Faint grou ndglass densities within the upper lobes also likely represent congestive change. Consolidation withi n the bilateral lower lobes posteriorly. This is nonspecific but favors atelectasis from the pleural effusions. A superimposed pneumonia is considered less likely but not entirely excluded. IMPRESSION: 1. No evidence for pulmonary embolus. 2. [id number]-[id number] pulmonary edema and small bilateral pleural effusions. 3. Mild diffuse body wall edema. 4. Consolidation within the bilateral lower lobes posteriorly. This is nonspecific but favors atelect asis from the pleural effusions. A superimposed pneumonia is considered less likely but not entirely excluded. ACT 112: Negative or not required by law. Electronically signed by: Dhruv Peterson M.D. 03/08/2020 9:30 AM
[2020-03-08] MEDS ORDERED: FUROSEMIDE 20 MG in SYRINGE 0 ML IV ONE (10:30)
--- NOTE | 2020-03-08 11:42 | Obstetrical Progress Note ---
Date of Service March 08, 2020 Assessment & Plan Admission and Anticipated Discharge Date Admission Date: March 06, 2020 Subjective Patient is seen and examined. She feels well, no complaints. Pain is under control with oral meds. Not OOB yet Flatus + BM neg Hungry desires to eat Bleeding is minimal No SALDIVAR/ Change in vision/ fever/ chills/ CP/ SOB/ N&V/ Leg pain Breast feeding without problems Vital Signs Temp Pulse Resp BP Pulse Ox 03/08/20 11:34 81 96 03/08/20 11:29 92 H 97 03/08/20 11:26 80 147/91 H 03/08/20 11:25 80 94 03/08/20 11:24 75 96 03/08/20 11:19 81 96 03/08/20 11:14 82 94 03/08/20 11:12 75 140/86 03/08/20 11:09 78 95 03/08/20 11:08 79 94 03/08/20 11:04 80 97 03/08/20 11:02 87 94 03/08/20 11:00 36.9 C 16 95 03/08/20 10:59 90 95 03/08/20 10:57 78 142/76 H 03/08/20 10:56 78 94 03/08/20 10:54 80 95 03/08/20 10:49 82 97 03/08/20 10:44 79 96 03/08/20 10:42 75 156/96 H 03/08/20 10:39 87 97 03/08/20 10:34 76 97 03/08/20 10:32 83 94 03/08/20 10:29 82 96 03/08/20 10:24 82 97 03/08/20 10:22 77 132/74 03/08/20 10:19 80 99 03/08/20 10:14 79 98 03/08/20 10:09 80 96 03/08/20 10:04 79 97 03/08/20 09:59 79 18 97 03/08/20 09:54 85 96 03/08/20 09:53 89 94 03/08/20 09:49 82 97 03/08/20 09:48 85 94 03/08/20 09:46 80 148/90 H 03/08/20 09:44 79 98 03/08/20 09:39 89 97 03/08/20 09:36 85 141/85 H 03/08/20 09:34 86 92 03/08/20 09:29 82 93 03/08/20 09:28 84 93 03/08/20 09:24 93 H 92 03/08/20 09:19 87 93 03/08/20 09:14 91 H 91 03/08/20 09:10 98 H 93 03/08/20 09:09 106 H 18 96 03/08/20 08:50 93 H 96 03/08/20 08:45 76 20 98 03/08/20 08:40 79 98 03/08/20 08:35 82 98 03/08/20 08:30 86 98 03/08/20 08:25 83 96 03/08/20 08:20 73 95 03/08/20 08:19 75 139/82 03/08/20 08:15 74 16 94 03/08/20 08:10 74 94 03/08/20 08:05 76 95 03/08/20 08:00 75 20 94 03/08/20 07:55 87 97 03/08/20 07:50 87 96 03/08/20 07:45 72 18 95 03/08/20 07:40 68 93 03/08/20 07:35 80 96 03/08/20 07:30 77 95 03/08/20 07:25 68 94 03/08/20 07:22 84 88 L 03/08/20 07:20 85 94 03/08/20 07:19 95 H 160/86 H 03/08/20 07:15 36.8 C 83 16 95 03/08/20 07:14 89 87 L 03/08/20 07:10 81 96 03/08/20 07:09 82 145/98 H 03/08/20 07:05 79 97 03/08/20 07:00 75 95 03/08/20 06:55 82 94 03/08/20 06:50 74 94 03/08/20 06:45 81 92 03/08/20 06:40 74 94 03/08/20 06:35 76 96 03/08/20 06:30 72 92 03/08/20 06:25 81 97 03/08/20 06:20 79 93 03/08/20 06:19 75 157/84 H 03/08/20 06:15 88 18 96 03/08/20 06:10 98 H 91 03/08/20 06:05 89 94 03/08/20 06:00 78 94 03/08/20 05:55 81 94 03/08/20 05:50 79 93 03/08/20 05:45 79 93 03/08/20 05:40 80 93 03/08/20 05:35 76 93 03/08/20 05:30 75 18 93 03/08/20 05:25 85 96 03/08/20 05:20 78 93 03/08/20 05:19 83 159/86 H 03/08/20 05:15 83 92 03/08/20 05:10 87 95 03/08/20 05:05 78 93 03/08/20 05:00 82 18 94 03/08/20 04:55 84 95 03/08/20 04:50 79 92 03/08/20 04:45 73 96 03/08/20 04:40 81 94 03/08/20 04:35 93 H 97 03/08/20 04:30 87 18 95 03/08/20 04:25 85 83 L 03/08/20 04:20 95 H 90 03/08/20 04:19 78 142/90 H 87 L 03/08/20 04:15 86 89 L 03/08/20 04:12 88 88 L 03/08/20 04:10 90 91 03/08/20 04:04 79 88 L 03/08/20 04:00 18 03/08/20 03:59 83 90 03/08/20 03:54 81 91 03/08/20 03:49 85 93 03/08/20 03:44 92 H 86 L 03/08/20 03:42 84 88 L 03/08/20 03:39 96 H 90 03/08/20 03:34 84 85 L 03/08/20 03:30 18 03/08/20 03:29 87 85 L 03/08/20 03:24 83 88 L 03/08/20 03:19 91 H 125/76 88 L 03/08/20 03:14 85 89 L 03/08/20 03:13 85 88 L 03/08/20 03:09 81 89 L 03/08/20 03:04 79 92 03/08/20 03:02 83 88 L 03/08/20 02:59 84 90 03/08/20 02:54 96 H 91 03/08/20 02:52 96 H 88 L 03/08/20 02:49 87 89 L 03/08/20 02:47 86 88 L 03/08/20 02:44 82 91 03/08/20 02:39 88 90 03/08/20 02:34 89 91 03/08/20 02:29 86 91 03/08/20 02:24 85 92 03/08/20 02:19 95 H 93 03/08/20 02:17 88 122/66 88 L 03/08/20 02:14 84 88 L 03/08/20 02:12 86 88 L 03/08/20 02:10 18 03/08/20 02:09 83 91 03/08/20 02:07 85 131/72 03/08/20 02:04 84 93 03/08/20 01:59 86 92 03/08/20 01:57 78 132/72 03/08/20 01:54 82 92 03/08/20 01:50 85 130/72 03/08/20 01:49 93 H 95 03/08/20 01:44 94 H 95 03/08/20 01:40 36.9 C 18 03/08/20 01:39 89 93 03/08/20 01:37 90 133/75 03/08/20 01:34 90 95 03/08/20 01:29 86 94 03/08/20 01:27 90 136/74 03/08/20 01:24 98 H 93 03/08/20 01:19 96 H 95 03/08/20 01:17 90 142/80 H 03/08/20 01:14 92 H 93 03/08/20 01:10 18 03/08/20 01:09 93 H 93 03/08/20 01:07 92 H 150/83 H 03/08/20 01:04 99 H 93 03/08/20 01:00 18 03/08/20 00:59 93 H 93 03/08/20 00:57 90 148/86 H 03/08/20 00:54 97 H 94 03/08/20 00:50 18 03/08/20 00:49 93 H 92 03/08/20 00:47 90 149/85 H 03/08/20 00:44 97 H 93 03/08/20 00:40 18 03/08/20 00:39 95 H 93 03/08/20 00:37 96 H 150/86 H 03/08/20 00:34 96 H 94 03/08/20 00:30 18 03/08/20 00:29 97 H 94 03/08/20 00:27 98 H 142/91 H 03/08/20 00:26 91 H 150/90 H 03/08/20 00:25 96 H 164/93 H 03/08/20 00:24 97 H 96 03/08/20 00:20 18 03/08/20 00:19 98 H 94 03/08/20 00:18 99 H 156/96 H 03/08/20 00:14 99 H 94 03/08/20 00:13 96 H 94 03/08/20 00:10 37.3 C 18 03/08/20 00:09 95 H 95 03/08/20 00:08 95 H 149/105 H 94 03/08/20 00:04 99 H 95 03/07/20 23:59 100 H 96 03/07/20 23:54 99 H 97 03/07/20 23:50 101 H 118/99 03/07/20 23:49 101 H 96 UOP: emptied 1150 ml since this morning, clear PE: General: Alert, orientedx3, NAD CVS: S1S2 RRR Lungs; CTAB Abd: soft, NT, ND, BS+, fundus firm, below Umbilicus Incision: Clean, dry, intact Perineum intact, Lochia rubra minimal Ext; NT, same edema AP: 25 yo s/p C Section, pod# 1 VSS Afebrile doing well Low O2, pulmonary edema, Hospitalist was consulted Volume overload, s/p 1 dose of Lasix, stopped IV Magnesium, decreased IVF rate UOP improved Nasal O2 2 lt, will decrease to 1lt and then wean off Continue to monitor Results & Data ([facility]) Vital Signs (Past 12 Hours) Vital Signs Temp Pulse Resp BP Pulse Ox 03/08/20 11:34 81 96 03/08/20 11:29 92 H 97 03/08/20 11:26 80 147/91 H 03/08/20 11:25 80 94 03/08/20 11:24 75 96 03/08/20 11:19 81 96 03/08/20 11:14 82 94 03/08/20 11:12 75 140/86 03/08/20 11:09 78 95 03/08/20 11:08 79 94 03/08/20 11:04 80 97 03/08/20 11:02 87 94 03/08/20 11:00 36.9 C 16 95 03/08/20 10:59 90 95 03/08/20 10:57 78 142/76 H 03/08/20 10:56 78 94 03/08/20 10:54 80 95 03/08/20 10:49 82 97 03/08/20 10:44 79 96 03/08/20 10:42 75 156/96 H 03/08/20 10:39 87 97 03/08/20 10:34 76 97 03/08/20 10:32 83 94 03/08/20 10:29 82 96 03/08/20 10:24 82 97 03/08/20 10:22 77 132/74 03/08/20 10:19 80 99 03/08/20 10:14 79 98 03/08/20 10:09 80 96 03/08/20 10:04 79 97 03/08/20 09:59 79 18 97 03/08/20 09:54 85 96 03/08/20 09:53 89 94 03/08/20 09:49 82 97 03/08/20 09:48 85 94 03/08/20 09:46 80 148/90 H 03/08/20 09:44 79 98 03/08/20 09:39 89 97 03/08/20 09:36 85 141/85 H 03/08/20 09:34 86 92 03/08/20 09:29 82 93 03/08/20 09:28 84 93 03/08/20 09:24 93 H 92 03/08/20 09:19 87 93 03/08/20 09:14 91 H 91 03/08/20 09:10 98 H 93 03/08/20 09:09 106 H 18 96 03/08/20 08:50 93 H 96 03/08/20 08:45 76 20 98 03/08/20 08:40 79 98 03/08/20 08:35 82 98 03/08/20 08:30 86 98 03/08/20 08:25 83 96 03/08/20 08:20 73 95 03/08/20 08:19 75 139/82 03/08/20 08:15 74 16 94 03/08/20 08:10 74 94 03/08/20 08:05 76 95 03/08/20 08:00 75 20 94 03/08/20 07:55 87 97 03/08/20 07:50 87 96 03/08/20 07:45 72 18 95 03/08/20 07:40 68 93 03/08/20 07:35 80 96 03/08/20 07:30 77 95 03/08/20 07:25 68 94 03/08/20 07:22 84 88 L 03/08/20 07:20 85 94 03/08/20 07:19 95 H 160/86 H 03/08/20 07:15 36.8 C 83 16 95 03/08/20 07:14 89 87 L 03/08/20 07:10 81 96 03/08/20 07:09 82 145/98 H 03/08/20 07:05 79 97 03/08/20 07:00 75 95 03/08/20 06:55 82 94 03/08/20 06:50 74 94 03/08/20 06:45 81 92 03/08/20 06:40 74 94 03/08/20 06:35 76 96 03/08/20 06:30 72 92 03/08/20 06:25 81 97 03/08/20 06:20 79 93 03/08/20 06:19 75 157/84 H 03/08/20 06:15 88 18 96 03/08/20 06:10 98 H 91 03/08/20 06:05 89 94 03/08/20 06:00 78 94 03/08/20 05:55 81 94 03/08/20 05:50 79 93 03/08/20 05:45 79 93 03/08/20 05:40 80 93 03/08/20 05:35 76 93 03/08/20 05:30 75 18 93 03/08/20 05:25 85 96 03/08/20 05:20 78 93 03/08/20 05:19 83 159/86 H 03/08/20 05:15 83 92 03/08/20 05:10 87 95 03/08/20 05:05 78 93 03/08/20 05:00 82 18 94 03/08/20 04:55 84 95 03/08/20 04:50 79 92 03/08/20 04:45 73 96 03/08/20 04:40 81 94 03/08/20 04:35 93 H 97 03/08/20 04:30 87 18 95 03/08/20 04:25 85 83 L 03/08/20 04:20 95 H 90 03/08/20 04:19 78 142/90 H 87 L 03/08/20 04:15 86 89 L 03/08/20 04:12 88 88 L 03/08/20 04:10 90 91 03/08/20 04:04 79 88 L 03/08/20 04:00 18 03/08/20 03:59 83 90 03/08/20 03:54 81 91 03/08/20 03:49 85 93 03/08/20 03:44 92 H 86 L 03/08/20 03:42 84 88 L 03/08/20 03:39 96 H 90 03/08/20 03:34 84 85 L 03/08/20 03:30 18 03/08/20 03:29 87 85 L 03/08/20 03:24 83 88 L 03/08/20 03:19 91 H 125/76 88 L 03/08/20 03:14 85 89 L 03/08/20 03:13 85 88 L 03/08/20 03:09 81 89 L 03/08/20 03:04 79 92 03/08/20 03:02 83 88 L 03/08/20 02:59 84 90 03/08/20 02:54 96 H 91 03/08/20 02:52 96 H 88 L 03/08/20 02:49 87 89 L 03/08/20 02:47 86 88 L 03/08/20 02:44 82 91 03/08/20 02:39 88 90 03/08/20 02:34 89 91 03/08/20 02:29 86 91 03/08/20 02:24 85 92 03/08/20 02:19 95 H 93 03/08/20 02:17 88 122/66 88 L 03/08/20 02:14 84 88 L 03/08/20 02:12 86 88 L 03/08/20 02:10 18 03/08/20 02:09 83 91 01/17/21 02:07 85 131/72 03/08/20 02:04 84 93 03/08/20 01:59 86 92 03/08/20 01:57 78 132/72 03/08/20 01:54 82 92 03/08/20 01:50 85 130/72 03/08/20 01:49 93 H 95 03/08/20 01:44 94 H 95 03/08/20 01:40 36.9 C 18 03/08/20 01:39 89 93 03/08/20 01:37 90 133/75 03/08/20 01:34 90 95 03/08/20 01:29 86 94 03/08/20 01:27 90 136/74 03/08/20 01:24 98 H 93 03/08/20 01:19 96 H 95 03/08/20 01:17 90 142/80 H 03/08/20 01:14 92 H 93 03/08/20 01:10 18 03/08/20 01:09 93 H 93 03/08/20 01:07 92 H 150/83 H 03/08/20 01:04 99 H 93 03/08/20 01:00 18 03/08/20 00:59 93 H 93 03/08/20 00:57 90 148/86 H 03/08/20 00:54 97 H 94 03/08/20 00:50 18 03/08/20 00:49 93 H 92 03/08/20 00:47 90 149/85 H 03/08/20 00:44 97 H 93 03/08/20 00:40 18 03/08/20 00:39 95 H 93 03/08/20 00:37 96 H 150/86 H 03/08/20 00:34 96 H 94 03/08/20 00:30 18 03/08/20 00:29 97 H 94 03/08/20 00:27 98 H 142/91 H 03/08/20 00:26 91 H 150/90 H 03/08/20 00:25 96 H 164/93 H 03/08/20 00:24 97 H 96 03/08/20 00:20 18 03/08/20 00:19 98 H 94 03/08/20 00:18 99 H 156/96 H 03/08/20 00:14 99 H 94 03/08/20 00:13 96 H 94 03/08/20 00:10 37.3 C 18 03/08/20 00:09 95 H 95 03/08/20 00:08 95 H 149/105 H 94 03/08/20 00:04 99 H 95 03/07/20 23:59 100 H 96 03/07/20 23:54 99 H 97 03/07/20 23:50 101 H 118/99 03/07/20 23:49 101 H 96
[2020-03-08] MEDS ORDERED: MEPERIDINE HCL 50 MG/ML CARP IV PRN (17:08)
[2020-03-08] MEDS ORDERED: ONDANSETRON INJ 2 MG/ML 2 ML VIAL IV PRN (17:08)
[2020-03-08] MEDS ORDERED: PROMETHAZINE HCL 25 MG in SODIUM CHLORIDE 0.9% 50 ML IV PRN (17:08)
[2020-03-08] MEDS ORDERED: diphenhydrAMINE Capsule 25 MG CAP PO PRN (17:08)
[2020-03-08] MEDS ORDERED: diphenhydrAMINE 50 MG/ML VIAL IV PRN (17:08)
[2020-03-08] MEDS ORDERED: KETOROLAC 30 MG/ML VIAL IV PRN (17:08)
[2020-03-08] MEDS: oxyCODONE/ACETAMINOPHEN 5mg/325mg TAB PO PRN ×2 (17:32→21:25)
[2020-03-08] MEDS: IBUPROFEN 600 MG TAB PO PRN ×2 (17:32→21:24)
[2020-03-08] MEDS ORDERED: bisacodyL 5 MG TABEC PO SCH (20:00)
[2020-03-09] MEDS: oxyCODONE/ACETAMINOPHEN 5mg/325mg TAB PO PRN ×5 (01:33→23:52)
[2020-03-09] MEDS: IBUPROFEN 600 MG TAB PO PRN ×5 (01:34→23:52)
[2020-03-09 06:37] LABS: Basophils # (auto) 0.01 K/uL (0-0.2); Basophils % (auto) 0.1 %; Eosinophils % (auto) 0.7 %; Hematocrit (blood only) 31.1 % (37-47); Hemoglobin 10.5 g/dL (12.0-16.0); Immature Granulocytes # (auto) 0.04 K/uL (0.00-0.02); Immature Granulocytes % (auto) 0.3 %; Lymphocytes # (auto) 2.23 K/uL (1.2-3.4); Lymphocytes % (auto) 14.8 %; Mean Corpuscular Hemoglobin 29.5 pg (25-34); Mean Corpuscular Hgb Conc 33.8 g/dL (32-36); Mean Corpuscular Volume 87.4 fL (80-100); Mean Platelet Volume 10.1 fL (7.4-10.4); Monocytes # (auto) 1.23 K/uL (0.11-0.59); Monocytes % (auto) 8.2 %; Neutrophils # (auto) 11.43 K/uL (1.4-6.5); Neutrophils % (auto) 75.9 %; Platelet Count 233 K/uL (130-400); RDW Coefficient of Variation 12.7 % (11.5-14.5); RDW Standard Deviation 40.9 fL (36.4-46.3); Red Blood Count 3.56 M/uL (4.2-5.4); White Blood Count 15.04 K/uL (4.8-10.8)
[2020-03-09 07:25] LABS: BUN Creatinine Ratio 16.3 (10-20); Calcium 8.7 mg/dl (8.5-10.1); Creatinine Clr Calc Pharmacy 142.9 ml/min; Est GFR (African American) 147.2; Magnesium 2.7 mg/dl (1.8-2.4); Potassium 4.6 mmol/L (3.5-5.1)
[2020-03-09 08:15] LABS: Estimated Average Glucose 111 mg/dl; Hemoglobin A1C 5.5 % (4.5-5.6)
--- NOTE | 2020-03-09 08:21 | Surgery Progress Note ---
Date of Service March 09, 2020 Assessment & Plan Admission and Anticipated Discharge Date Admission Date: March 06, 2020 Subjective POD#1 stable passing gas tolerating diet no SOB or chest pain out of bed no headache or visual changes Physical Exam Constitutional: WD/WN, vitals as above well developed and comfortable incision c/d/i abdomen soft and non-tender decrease edema neg Tamela's Results & Data ([facility]) Vital Signs (Past 12 Hours) Vital Signs Temp Pulse Resp BP Pulse Ox 03/09/20 04:30 36.8 C 90 18 143/90 H 96 03/08/20 23:30 36.8 C 85 18 142/91 H 96 Laboratory Results Laboratory Results - last 72 hr 03/06/20 03/06/20 03/06/20 16:24 16:24 16:24 WBC 11.68 H RBC 4.31 Hgb 12.8 Hct 37.4 MCV 86.8 MCH 29.7 MCHC 34.2 RDW Std Deviation 38.3 RDW Coeff of [place] 12.1 Plt Count 282 MPV 11.0 H Immature Gran % (Auto) 0.3 Neut % (Auto) 64.0 Lymph % (Auto) 23.8 [place] % (Auto) 11.0 Eos % (Auto) 0.8 Baso % (Auto) 0.1 Neut # (Auto) 7.47 H Lymph # (Auto) 2.78 [place] # (Auto) 1.29 H Eos # (Auto) 0.09 Baso # (Auto) 0.01 Immature Gran # (Auto) 0.04 H Sodium 137 Potassium 3.7 Chloride 106 Carbon Dioxide 21 Anion Gap 10.0 BUN 8 Creatinine 0.56 L Est Cr Clr Drug Dosing 145.4 Est GFR ( Amer) 148.1 Est GFR (Non-Af Amer) 127.8 BUN/Creatinine Ratio 13.4 Glucose 82 POC Glucose Fasting Glucose Estimat Average Glucose Hemoglobin A1c Uric Acid 4.7 Calcium 8.4 L Magnesium Total Bilirubin 0.2 Direct Bilirubin < 0.1 AST 14 L ALT 15 Alkaline Phosphatase 185 H Lactate Dehydrogenase 178 Total Protein 6.2 L Albumin 2.2 L Globulin Albumin/Globulin Ratio Urine Color Urine Appearance Urine pH Ur Specific [place] Urine Protein Urine Glucose (UA) Urine Ketones Urine Blood Urine Nitrite Urine Bilirubin Urine Urobilinogen Ur Leukocyte Esterase Urine RBC Urine WBC Ur Epithelial Cells Urine Bacteria Ur Random Creatinine U Random Total Protein Protein/Creatinin Ratio COVID-19 Eval Order SARS-CoV-2, RNA, NAAT 03/06/20 03/06/20 03/06/20 Unknown Unknown Unknown WBC RBC Hgb Hct MCV MCH MCHC RDW Std Deviation RDW Coeff of [place] Plt Count MPV Immature Gran % (Auto) Neut % (Auto) Lymph % (Auto) [place] % (Auto) Eos % (Auto) Baso % (Auto) Neut # (Auto) Lymph # (Auto) [place] # (Auto) Eos # (Auto) Baso # (Auto) Immature Gran # (Auto) Sodium Potassium Chloride Carbon Dioxide Anion Gap BUN Creatinine Est Cr Clr Drug Dosing Est GFR ( Amer) Est GFR (Non-Af Amer) BUN/Creatinine Ratio Glucose POC Glucose Fasting Glucose Estimat Average Glucose Hemoglobin A1c Uric Acid Calcium Magnesium Total Bilirubin Direct Bilirubin AST ALT Alkaline Phosphatase Lactate Dehydrogenase Total Protein Albumin Globulin Albumin/Globulin Ratio Urine Color Yellow Urine Appearance Clear Urine pH 7.0 Ur Specific [place] 1.008 Urine Protein 4+ H Urine Glucose (UA) Negative Urine Ketones Negative Urine Blood Trace H Urine Nitrite Negative Urine Bilirubin Negative Urine Urobilinogen Negative Ur Leukocyte Esterase Negative Urine RBC 0-4 Urine WBC 0-5 Ur Epithelial Cells >30 H Urine Bacteria Negative Ur Random Creatinine 35.0 U Random Total Protein 590.8 H Protein/Creatinin Ratio 16.9 H COVID-19 Eval Order Covid19 IDNow [facility] SARS-CoV-2, RNA, NAAT 03/06/20 03/07/20 03/07/20 Unknown 08:31 08:31 WBC 15.58 H RBC 4.14 L Hgb 12.3 Hct 35.9 L MCV 86.7 MCH 29.7 MCHC 34.3 RDW Std Deviation 39.9 RDW Coeff of [place] 12.5 Plt Count 318 MPV 10.9 H Immature Gran % (Auto) 0.2 Neut % (Auto) 80.2 Lymph % (Auto) 11.7 [place] % (Auto) 7.7 Eos % (Auto) 0.1 Baso % (Auto) 0.1 Neut # (Auto) 12.49 H Lymph # (Auto) 1.82 [place] # (Auto) 1.20 H Eos # (Auto) 0.02 Baso # (Auto) 0.02 Immature Gran # (Auto) 0.03 H Sodium 133 L Potassium 4.1 Chloride 102 Carbon Dioxide 22 Anion Gap 9.0 BUN 6 L Creatinine 0.54 L Est Cr Clr Drug Dosing 150.8 Est GFR ( Amer) 149.9 Est GFR (Non-Af Amer) 129.3 BUN/Creatinine Ratio Glucose POC Glucose Fasting Glucose 104 H Estimat Average Glucose Hemoglobin A1c Uric Acid Calcium 7.7 L Magnesium 5.9 H* Total Bilirubin 0.3 Direct Bilirubin AST 12 L ALT 13 Alkaline Phosphatase 187 H Lactate Dehydrogenase Total Protein 5.8 L Albumin 2.1 L Globulin 3.7 Albumin/Globulin Ratio 0.6 L Urine Color Urine Appearance Urine pH Ur Specific [place] Urine Protein Urine Glucose (UA) Urine Ketones Urine Blood Urine Nitrite Urine Bilirubin Urine Urobilinogen Ur Leukocyte Esterase Urine RBC Urine WBC Ur Epithelial Cells Urine Bacteria Ur Random Creatinine U Random Total Protein Protein/Creatinin Ratio COVID-19 Eval Order SARS-CoV-2, RNA, NAAT NEGATIVE 03/07/20 03/07/20 03/07/20 16:18 22:18 22:18 WBC 18.12 H RBC 4.07 L Hgb 12.2 Hct 35.1 L MCV 86.2 MCH 30.0 MCHC 34.8 RDW Std Deviation 39.6 RDW Coeff of [place] 12.4 Plt Count 269 MPV 10.5 H Immature Gran % (Auto) 0.3 Neut % (Auto) 84.6 Lymph % (Auto) 7.6 [place] % (Auto) 7.3 Eos % (Auto) 0.1 Baso % (Auto) 0.1 Neut # (Auto) 15.34 H Lymph # (Auto) 1.38 [place] # (Auto) 1.32 H Eos # (Auto) 0.01 Baso # (Auto) 0.01 Immature Gran # (Auto) 0.06 H Sodium 132 L Potassium 3.9 Chloride 100 Carbon Dioxide 22 Anion Gap 10.0 BUN 7 Creatinine 0.75 Est Cr Clr Drug Dosing 108.6 Est GFR ( Amer) 126.6 Est GFR (Non-Af Amer) 109.2 BUN/Creatinine Ratio 9.9 L Glucose 135 H POC Glucose Fasting Glucose Estimat Average Glucose Hemoglobin A1c Uric Acid Calcium 7.0 L Magnesium 5.9 H* Total Bilirubin 0.3 Direct Bilirubin AST 13 L ALT 12 Alkaline Phosphatase 178 H Lactate Dehydrogenase Total Protein 5.5 L Albumin 1.8 L Globulin 3.7 Albumin/Globulin Ratio 0.5 L Urine Color Urine Appearance Urine pH Ur Specific [place] Urine Protein Urine Glucose (UA) Urine Ketones Urine Blood Urine Nitrite Urine Bilirubin Urine Urobilinogen Ur Leukocyte Esterase Urine RBC Urine WBC Ur Epithelial Cells Urine Bacteria Ur Random Creatinine U Random Total Protein Protein/Creatinin Ratio COVID-19 Eval Order SARS-CoV-2, RNA, NAAT 03/08/20 03/08/20 03/08/20 06:12 06:12 09:11 WBC 16.87 H RBC 3.53 L Hgb 10.4 L Hct 30.5 L MCV 86.4 MCH 29.5 MCHC 34.1 RDW Std Deviation 39.1 RDW Coeff of [place] 12.4 Plt Count 240 MPV 10.4 Immature Gran % (Auto) 0.2 Neut % (Auto) 81.1 Lymph % (Auto) 9.2 [place] % (Auto) 9.4 Eos % (Auto) 0.1 Baso % (Auto) 0.0 Neut # (Auto) 13.69 H Lymph # (Auto) 1.55 [place] # (Auto) 1.59 H Eos # (Auto) 0.01 Baso # (Auto) 0.00 Immature Gran # (Auto) 0.03 H Sodium 130 L Potassium 4.3 Chloride 100 Carbon Dioxide 24 Anion Gap 6.0 BUN 8 Creatinine 0.59 L Est Cr Clr Drug Dosing 138.0 Est GFR ( Amer) 145.6 Est GFR (Non-Af Amer) 125.6 BUN/Creatinine Ratio Glucose POC Glucose 99 Fasting Glucose 124 H Estimat Average Glucose Hemoglobin A1c Uric Acid Calcium 7.0 L Magnesium 5.3 H* Total Bilirubin 0.2 Direct Bilirubin AST 12 L ALT 10 L Alkaline Phosphatase 149 H Lactate Dehydrogenase Total Protein 4.7 L Albumin 1.5 L Globulin 3.2 Albumin/Globulin Ratio 0.5 L Urine Color Urine Appearance Urine pH Ur Specific [place] Urine Protein Urine Glucose (UA) Urine Ketones Urine Blood Urine Nitrite Urine Bilirubin Urine Urobilinogen Ur Leukocyte Esterase Urine RBC Urine WBC Ur Epithelial Cells Urine Bacteria Ur Random Creatinine U Random Total Protein Protein/Creatinin Ratio COVID-19 Eval Order SARS-CoV-2, RNA, NAAT 03/09/20 03/09/20 03/09/20 06:23 06:23 06:23 WBC 15.04 H RBC 3.56 L Hgb 10.5 L Hct 31.1 L MCV 87.4 MCH 29.5 MCHC 33.8 RDW Std Deviation 40.9 RDW Coeff of [place] 12.7 Plt Count 233 MPV 10.1 Immature Gran % (Auto) 0.3 Neut % (Auto) 75.9 Lymph % (Auto) 14.8 [place] % (Auto) 8.2 Eos % (Auto) 0.7 Baso % (Auto) 0.1 Neut # (Auto) 11.43 H Lymph # (Auto) 2.23 [place] # (Auto) 1.23 H Eos # (Auto) 0.10 Baso # (Auto) 0.01 Immature Gran # (Auto) 0.04 H Sodium 137 D Potassium 4.6 Chloride 104 Carbon Dioxide 24 Anion Gap 9.0 BUN 9 Creatinine 0.57 L Est Cr Clr Drug Dosing 142.9 Est GFR ( Amer) 147.2 Est GFR (Non-Af Amer) 127.0 BUN/Creatinine Ratio 16.3 Glucose 84 POC Glucose Fasting Glucose Estimat Average Glucose 111 Hemoglobin A1c 5.5 Uric Acid Calcium 8.7 D Magnesium 2.7 H Total Bilirubin Direct Bilirubin AST ALT Alkaline Phosphatase Lactate Dehydrogenase Total Protein Albumin Globulin Albumin/Globulin Ratio Urine Color Urine Appearance Urine pH Ur Specific [place] Urine Protein Urine Glucose (UA) Urine Ketones Urine Blood Urine Nitrite Urine Bilirubin Urine Urobilinogen Ur Leukocyte Esterase Urine RBC Urine WBC Ur Epithelial Cells Urine Bacteria Ur Random Creatinine U Random Total Protein Protein/Creatinin Ratio COVID-19 Eval Order SARS-CoV-2, RNA, NAAT
[2020-03-09] MEDS: SIMETHICONE 80 MG CHEW PO SCH ×4 (08:26→21:06)
[2020-03-09] MEDS: DOCUSATE SODIUM 100 MG CAP PO SCH ×2 (08:26→21:06)
[2020-03-09] MEDS: FERROUS SULFATE 325 MG TAB PO SCH (08:27)
[2020-03-09] MEDS: PRENATAL VITAMIN 1 TAB PO SCH (08:27)
[2020-03-09] MEDS: LABETALOL HCL 100 MG TAB PO SCH (08:27)
--- NOTE | 2020-03-09 14:38 | Hospitalist Progress Note ---
Date of Service March 09, 2020 Assessment & Plan (1) Hypoxia: Acute respiratory failure with hypoxia Secondary to volume overload/Pulmonary edema COVID Screen: Negative -CTA:No evidence for pulmonary embolus. [id number] pulmonary edema and small bilateral pleural effusions. Mild diffuse body wall edema. Consolidation within the bilateral lower lobes posteriorly. This is nonspecific but favors atelectasis from the pleural effusions. A superimposed pneumonia is considered less likely but not entirely excluded. -ECHO: (Systolic function is normal. EF 55 to 60%. Right ventricle systolic function is normal. Mild mitral regurgitation. Received a dose of Lasix IV fluids discontinued Weaned off of supplemental oxygen Currently saturating 97% on room air Continue incentive spirometry Hyponatremia Secondary to above Resolved Monitor sodium levels (2) S/P : (3) Pre-eclampsia during in third trimester, antepartum: Continue labetalol and preeclampsia management as per [employer] (4) GDM (gestational diabetes mellitus): Hgb A1c:5.5 -Monitor BSG (5) DVT prophylaxis: -SCDs as per [employer] Thank you for this consultation. We will follow the patient with you during their hospital stay. You can reach a member of the [facility] Hospitalist Team 12/09 via pager @ [phone]. Admission and Anticipated Discharge Date Admission Date: March 06, 2020 Subjective Patient is seen and examined at bedside States feeling much better today Denies any chest pain, shortness breath, dizziness, nausea, abdominal pain Offers no other complaints States her leg erythema much improved as well Saturating 97% on room air Review of Systems Review of Systems: All systems reviewed & are unremarkable except as noted in HPI & below Physical Exam Physical Exam: Physical Exam: Vitals signs as noted above General Appearance:Obese, no apparent distress Head: normocephalic, Atraumatic Eyes: normal inspection, EOMI Neck: supple, Trachea midline Respiratory/Chest: Normal breath sounds, CTA Cardiovascular: S1, S2, No murmur Abdomen/GI:Soft, Non tender, Bowel sounds present Extremities/Musculoskelatal:normal inspection, B/L LE edema Neurologic/Psych:AAOX3, grossly no focal neurological deficits Skin: normal color, warm Results & Data Results & Data ([facility]) Vital Signs (Past 12 Hours) Vital Signs Temp Pulse Resp BP Pulse Ox 03/09/20 11:40 36.7 C 87 18 167/95 H 97 03/09/20 07:15 36.4 C L 87 18 145/90 H 96 03/09/20 04:30 36.8 C 90 18 143/90 H 96 Laboratory Results Short CBC 03/09/20 Range/Units 06:23 WBC 15.04 H (4.8-10.8) K/uL Hgb 10.5 L (12.0-16.0) g/dL Hct 31.1 L (37-47) % Plt Count 233 (130-400) K/uL BMP 03/09/20 06:23 Sodium 137 D Potassium 4.6 Chloride 104 Carbon Dioxide 24 BUN 9 Creatinine 0.57 L Glucose 84 Calcium 8.7 D
[2020-03-09] MEDS ORDERED: LACTATED RINGER'S 1,000 ML IV SCH (16:00)
[2020-03-09] MEDS ORDERED: LABETALOL HCL 100 MG TAB PO ONE (17:15)
[2020-03-09] MEDS: LABETALOL HCL 200 MG TAB PO SCH (21:06)
[2020-03-09] MEDS ORDERED: bisacodyL 10 MG SUPP PR PRN (23:43)
[2020-03-10] MEDS: LABETALOL HCL 200 MG TAB PO SCH ×3 (07:50→19:59)
--- NOTE | 2020-03-10 08:24 | Obstetrical Progress Note ---
Date of Service March 10, 2020 Assessment & Plan Admission and Anticipated Discharge Date Admission Date: March 06, 2020 Subjective Patient is seen and examined. She feels well, no complaints. Pain is under control with oral meds. Ambulating without dizziness Voiding without difficulty Tolerating regular diet with out N&V Flatus + BM neg Bleeding is minimal No SALDIVAR/ Change in vision/ fever/ chills/ CP/ SOB/ N&V/ Leg pain Breast feeding without problems Vital Signs Temp Pulse Resp BP Pulse Ox 03/10/20 07:50 36.6 C 98 H 18 167/99 H 03/09/20 23:45 36.7 C 80 18 168/100 H 96 03/09/20 21:06 36.9 C 78 18 169/105 H 03/09/20 18:33 86 151/96 H 03/09/20 16:40 168/106 H 03/09/20 15:35 160/103 H 03/09/20 15:30 36.8 C 87 19 189/100 H 03/09/20 11:40 36.7 C 87 18 167/95 H 97 Lab Results 03/06/20 03/06/20 03/06/20 Range/Units 16:24 16:24 16:24 WBC 11.68 H (4.8-10.8) K/uL RBC 4.31 (4.2-5.4) M/uL Hgb 12.8 (12.0-16.0) g/dL Hct 37.4 (37-47) % MCV 86.8 (80-100) fL MCH 29.7 (25-34) pg MCHC 34.2 (32-36) g/dL RDW Std Deviation 38.3 (36.4-46.3) fL RDW Coeff of Tabatha 12.1 (11.5-14.5) % Plt Count 282 (130-400) K/uL MPV 11.0 H (7.4-10.4) fL Immature Gran % (Auto) 0.3 % Neut % (Auto) 64.0 % Lymph % (Auto) 23.8 % [place] % (Auto) 11.0 % Eos % (Auto) 0.8 % Baso % (Auto) 0.1 % Neut # (Auto) 7.47 H (1.4-6.5) K/uL Lymph # (Auto) 2.78 (1.2-3.4) K/uL [place] # (Auto) 1.29 H (0.11-0.59) K/uL Eos # (Auto) 0.09 (0-0.5) K/uL Baso # (Auto) 0.01 (0-0.2) K/uL Immature Gran # (Auto) 0.04 H (0.00-0.02) K/uL Sodium 137 (136-145) mmol/L Potassium 3.7 (3.5-5.1) mmol/L Chloride 106 (98-107) mmol/L Carbon Dioxide 21 (21-32) mmol/L Anion Gap 10.0 (3-11) BUN 8 (7-18) mg/dl Creatinine 0.56 L (0.6-1.2) mg/dl Est Cr Clr Drug Dosing 145.4 ml/min Est GFR ( Amer) 148.1 Est GFR (Non-Af Amer) 127.8 BUN/Creatinine Ratio 13.4 (10-20) Glucose 82 (70-99) mg/dl POC Glucose (70-99) mg/dl Fasting Glucose (70-99) mg/dl Estimat Average Glucose mg/dl Hemoglobin A1c (4.5-5.6) % Uric Acid 4.7 (2.6-7.2) mg/dl Calcium 8.4 L (8.5-10.1) mg/dl Magnesium (1.8-2.4) mg/dl Total Bilirubin 0.2 (0.2-1) mg/dl Direct Bilirubin < 0.1 (0-0.2) mg/dl AST 14 L (15-37) U/L ALT 15 (12-78) U/L Alkaline Phosphatase 185 H (45-117) U/L Lactate Dehydrogenase 178 (84-246) U/L Total Protein 6.2 L (6.4-8.2) gm/dl Albumin 2.2 L (3.4-5.0) gm/dl Globulin (2.5-4.0) gm/dl Albumin/Globulin Ratio (0.9-2) Urine Color Urine Appearance (Clear) Urine pH (4.5-7.5) Ur Specific [place] (1.000-1.030) Urine Protein (Negative) Urine Glucose (UA) (Negative) Urine Ketones (Negative) Urine Blood (Negative) Urine Nitrite (Negative) Urine Bilirubin (Negative) Urine Urobilinogen (Negative) Ur Leukocyte Esterase (Negative) Urine RBC (0-4) /hpf Urine WBC (0-5) /hpf Ur Epithelial Cells (0-5) /lpf Urine Bacteria (Negative) Ur Random Creatinine mg/dl U Random Total Protein (0-11.9) mg/dl Protein/Creatinin Ratio (0-0.2) COVID-19 Eval Order SARS-CoV-2, RNA, NAAT (NEGATIVE) 03/06/20 03/06/20 03/06/20 Range/Units Unknown Unknown Unknown WBC (4.8-10.8) K/uL RBC (4.2-5.4) M/uL Hgb (12.0-16.0) g/dL Hct (37-47) % MCV (80-100) fL MCH (25-34) pg MCHC (32-36) g/dL RDW Std Deviation (36.4-46.3) fL RDW Coeff of Tabatha (11.5-14.5) % Plt Count (130-400) K/uL MPV (7.4-10.4) fL Immature Gran % (Auto) % Neut % (Auto) % Lymph % (Auto) % [place] % (Auto) % Eos % (Auto) % Baso % (Auto) % Neut # (Auto) (1.4-6.5) K/uL Lymph # (Auto) (1.2-3.4) K/uL [place] # (Auto) (0.11-0.59) K/uL Eos # (Auto) (0-0.5) K/uL Baso # (Auto) (0-0.2) K/uL Immature Gran # (Auto) (0.00-0.02) K/uL Sodium (136-145) mmol/L Potassium (3.5-5.1) mmol/L Chloride (98-107) mmol/L Carbon Dioxide (21-32) mmol/L Anion Gap (3-11) BUN (7-18) mg/dl Creatinine (0.6-1.2) mg/dl Est Cr Clr Drug Dosing ml/min Est GFR ( Amer) Est GFR (Non-Af Amer) BUN/Creatinine Ratio (10-20) Glucose (70-99) mg/dl POC Glucose (70-99) mg/dl Fasting Glucose (70-99) mg/dl Estimat Average Glucose mg/dl Hemoglobin A1c (4.5-5.6) % Uric Acid (2.6-7.2) mg/dl Calcium (8.5-10.1) mg/dl Magnesium (1.8-2.4) mg/dl Total Bilirubin (0.2-1) mg/dl Direct Bilirubin (0-0.2) mg/dl AST (15-37) U/L ALT (12-78) U/L Alkaline Phosphatase (45-117) U/L Lactate Dehydrogenase (84-246) U/L Total Protein (6.4-8.2) gm/dl Albumin (3.4-5.0) gm/dl Globulin (2.5-4.0) gm/dl Albumin/Globulin Ratio (0.9-2) Urine Color Yellow Urine Appearance Clear (Clear) Urine pH 7.0 (4.5-7.5) Ur Specific [place] 1.008 (1.000-1.030) Urine Protein 4+ H (Negative) Urine Glucose (UA) Negative (Negative) Urine Ketones Negative (Negative) Urine Blood Trace H (Negative) Urine Nitrite Negative (Negative) Urine Bilirubin Negative (Negative) Urine Urobilinogen Negative (Negative) Ur Leukocyte Esterase Negative (Negative) Urine RBC 0-4 (0-4) /hpf Urine WBC 0-5 (0-5) /hpf Ur Epithelial Cells >30 H (0-5) /lpf Urine Bacteria Negative (Negative) Ur Random Creatinine 35.0 mg/dl U Random Total Protein 590.8 H (0-11.9) mg/dl Protein/Creatinin Ratio 16.9 H (0-0.2) COVID-19 Eval Order Covid19 IDNow [facility] SARS-CoV-2, RNA, NAAT (NEGATIVE) 03/06/20 03/07/20 03/07/20 Range/Units Unknown 08:31 08:31 WBC 15.58 H (4.8-10.8) K/uL RBC 4.14 L (4.2-5.4) M/uL Hgb 12.3 (12.0-16.0) g/dL Hct 35.9 L (37-47) % MCV 86.7 (80-100) fL MCH 29.7 (25-34) pg MCHC 34.3 (32-36) g/dL RDW Std Deviation 39.9 (36.4-46.3) fL RDW Coeff of Tabatha 12.5 (11.5-14.5) % Plt Count 318 (130-400) K/uL MPV 10.9 H (7.4-10.4) fL Immature Gran % (Auto) 0.2 % Neut % (Auto) 80.2 % Lymph % (Auto) 11.7 % [place] % (Auto) 7.7 % Eos % (Auto) 0.1 % Baso % (Auto) 0.1 % Neut # (Auto) 12.49 H (1.4-6.5) K/uL Lymph # (Auto) 1.82 (1.2-3.4) K/uL [place] # (Auto) 1.20 H (0.11-0.59) K/uL Eos # (Auto) 0.02 (0-0.5) K/uL Baso # (Auto) 0.02 (0-0.2) K/uL Immature Gran # (Auto) 0.03 H (0.00-0.02) K/uL Sodium 133 L (136-145) mmol/L Potassium 4.1 (3.5-5.1) mmol/L Chloride 102 (98-107) mmol/L Carbon Dioxide 22 (21-32) mmol/L Anion Gap 9.0 (3-11) BUN 6 L (7-18) mg/dl Creatinine 0.54 L (0.6-1.2) mg/dl Est Cr Clr Drug Dosing 150.8 ml/min Est GFR ( Amer) 149.9 Est GFR (Non-Af Amer) 129.3 BUN/Creatinine Ratio (10-20) Glucose (70-99) mg/dl POC Glucose (70-99) mg/dl Fasting Glucose 104 H (70-99) mg/dl Estimat Average Glucose mg/dl Hemoglobin A1c (4.5-5.6) % Uric Acid (2.6-7.2) mg/dl Calcium 7.7 L (8.5-10.1) mg/dl Magnesium 5.9 H* (1.8-2.4) mg/dl Total Bilirubin 0.3 (0.2-1) mg/dl Direct Bilirubin (0-0.2) mg/dl AST 12 L (15-37) U/L ALT 13 (12-78) U/L Alkaline Phosphatase 187 H (45-117) U/L Lactate Dehydrogenase (84-246) U/L Total Protein 5.8 L (6.4-8.2) gm/dl Albumin 2.1 L (3.4-5.0) gm/dl Globulin 3.7 (2.5-4.0) gm/dl Albumin/Globulin Ratio 0.6 L (0.9-2) Urine Color Urine Appearance (Clear) Urine pH (4.5-7.5) Ur Specific [place] (1.000-1.030) Urine Protein (Negative) Urine Glucose (UA) (Negative) Urine Ketones (Negative) Urine Blood (Negative) Urine Nitrite (Negative) Urine Bilirubin (Negative) Urine Urobilinogen (Negative) Ur Leukocyte Esterase (Negative) Urine RBC (0-4) /hpf Urine WBC (0-5) /hpf Ur Epithelial Cells (0-5) /lpf Urine Bacteria (Negative) Ur Random Creatinine mg/dl U Random Total Protein (0-11.9) mg/dl Protein/Creatinin Ratio (0-0.2) COVID-19 Eval Order SARS-CoV-2, RNA, NAAT NEGATIVE (NEGATIVE) 03/07/20 03/07/20 03/07/20 Range/Units 16:18 22:18 22:18 WBC 18.12 H (4.8-10.8) K/uL RBC 4.07 L (4.2-5.4) M/uL Hgb 12.2 (12.0-16.0) g/dL Hct 35.1 L (37-47) % MCV 86.2 (80-100) fL MCH 30.0 (25-34) pg MCHC 34.8 (32-36) g/dL RDW Std Deviation 39.6 (36.4-46.3) fL RDW Coeff of Tabatha 12.4 (11.5-14.5) % Plt Count 269 (130-400) K/uL MPV 10.5 H (7.4-10.4) fL Immature Gran % (Auto) 0.3 % Neut % (Auto) 84.6 % Lymph % (Auto) 7.6 % [place] % (Auto) 7.3 % Eos % (Auto) 0.1 % Baso % (Auto) 0.1 % Neut # (Auto) 15.34 H (1.4-6.5) K/uL Lymph # (Auto) 1.38 (1.2-3.4) K/uL [place] # (Auto) 1.32 H (0.11-0.59) K/uL Eos # (Auto) 0.01 (0-0.5) K/uL Baso # (Auto) 0.01 (0-0.2) K/uL Immature Gran # (Auto) 0.06 H (0.00-0.02) K/uL Sodium 132 L (136-145) mmol/L Potassium 3.9 (3.5-5.1) mmol/L Chloride 100 (98-107) mmol/L Carbon Dioxide 22 (21-32) mmol/L Anion Gap 10.0 (3-11) BUN 7 (7-18) mg/dl Creatinine 0.75 (0.6-1.2) mg/dl Est Cr Clr Drug Dosing 108.6 ml/min Est GFR ( Amer) 126.6 Est GFR (Non-Af Amer) 109.2 BUN/Creatinine Ratio 9.9 L (10-20) Glucose 135 H (70-99) mg/dl POC Glucose (70-99) mg/dl Fasting Glucose (70-99) mg/dl Estimat Average Glucose mg/dl Hemoglobin A1c (4.5-5.6) % Uric Acid (2.6-7.2) mg/dl Calcium 7.0 L (8.5-10.1) mg/dl Magnesium 5.9 H* (1.8-2.4) mg/dl Total Bilirubin 0.3 (0.2-1) mg/dl Direct Bilirubin (0-0.2) mg/dl AST 13 L (15-37) U/L ALT 12 (12-78) U/L Alkaline Phosphatase 178 H (45-117) U/L Lactate Dehydrogenase (84-246) U/L Total Protein 5.5 L (6.4-8.2) gm/dl Albumin 1.8 L (3.4-5.0) gm/dl Globulin 3.7 (2.5-4.0) gm/dl Albumin/Globulin Ratio 0.5 L (0.9-2) Urine Color Urine Appearance (Clear) Urine pH (4.5-7.5) Ur Specific [place] (1.000-1.030) Urine Protein (Negative) Urine Glucose (UA) (Negative) Urine Ketones (Negative) Urine Blood (Negative) Urine Nitrite (Negative) Urine Bilirubin (Negative) Urine Urobilinogen (Negative) Ur Leukocyte Esterase (Negative) Urine RBC (0-4) /hpf Urine WBC (0-5) /hpf Ur Epithelial Cells (0-5) /lpf Urine Bacteria (Negative) Ur Random Creatinine mg/dl U Random Total Protein (0-11.9) mg/dl Protein/Creatinin Ratio (0-0.2) COVID-19 Eval Order SARS-CoV-2, RNA, NAAT (NEGATIVE) 03/08/20 03/08/20 03/08/20 Range/Units 06:12 06:12 09:11 WBC 16.87 H (4.8-10.8) K/uL RBC 3.53 L (4.2-5.4) M/uL Hgb 10.4 L (12.0-16.0) g/dL Hct 30.5 L (37-47) % MCV 86.4 (80-100) fL MCH 29.5 (25-34) pg MCHC 34.1 (32-36) g/dL RDW Std Deviation 39.1 (36.4-46.3) fL RDW Coeff of Tabatha 12.4 (11.5-14.5) % Plt Count 240 (130-400) K/uL MPV 10.4 (7.4-10.4) fL Immature Gran % (Auto) 0.2 % Neut % (Auto) 81.1 % Lymph % (Auto) 9.2 % [place] % (Auto) 9.4 % Eos % (Auto) 0.1 % Baso % (Auto) 0.0 % Neut # (Auto) 13.69 H (1.4-6.5) K/uL Lymph # (Auto) 1.55 (1.2-3.4) K/uL [place] # (Auto) 1.59 H (0.11-0.59) K/uL Eos # (Auto) 0.01 (0-0.5) K/uL Baso # (Auto) 0.00 (0-0.2) K/uL Immature Gran # (Auto) 0.03 H (0.00-0.02) K/uL Sodium 130 L (136-145) mmol/L Potassium 4.3 (3.5-5.1) mmol/L Chloride 100 (98-107) mmol/L Carbon Dioxide 24 (21-32) mmol/L Anion Gap 6.0 (3-11) BUN 8 (7-18) mg/dl Creatinine 0.59 L (0.6-1.2) mg/dl Est Cr Clr Drug Dosing 138.0 ml/min Est GFR ( Amer) 145.6 Est GFR (Non-Af Amer) 125.6 BUN/Creatinine Ratio (10-20) Glucose (70-99) mg/dl POC Glucose 99 (70-99) mg/dl Fasting Glucose 124 H (70-99) mg/dl Estimat Average Glucose mg/dl Hemoglobin A1c (4.5-5.6) % Uric Acid (2.6-7.2) mg/dl Calcium 7.0 L (8.5-10.1) mg/dl Magnesium 5.3 H* (1.8-2.4) mg/dl Total Bilirubin 0.2 (0.2-1) mg/dl Direct Bilirubin (0-0.2) mg/dl AST 12 L (15-37) U/L ALT 10 L (12-78) U/L Alkaline Phosphatase 149 H (45-117) U/L Lactate Dehydrogenase (84-246) U/L Total Protein 4.7 L (6.4-8.2) gm/dl Albumin 1.5 L (3.4-5.0) gm/dl Globulin 3.2 (2.5-4.0) gm/dl Albumin/Globulin Ratio 0.5 L (0.9-2) Urine Color Urine Appearance (Clear) Urine pH (4.5-7.5) Ur Specific [place] (1.000-1.030) Urine Protein (Negative) Urine Glucose (UA) (Negative) Urine Ketones (Negative) Urine Blood (Negative) Urine Nitrite (Negative) Urine Bilirubin (Negative) Urine Urobilinogen (Negative) Ur Leukocyte Esterase (Negative) Urine RBC (0-4) /hpf Urine WBC (0-5) /hpf Ur Epithelial Cells (0-5) /lpf Urine Bacteria (Negative) Ur Random Creatinine mg/dl U Random Total Protein (0-11.9) mg/dl Protein/Creatinin Ratio (0-0.2) COVID-19 Eval Order SARS-CoV-2, RNA, NAAT (NEGATIVE) 03/09/20 03/09/20 03/09/20 Range/Units 06:23 06:23 06:23 WBC 15.04 H (4.8-10.8) K/uL RBC 3.56 L (4.2-5.4) M/uL Hgb 10.5 L (12.0-16.0) g/dL Hct 31.1 L (37-47) % MCV 87.4 (80-100) fL MCH 29.5 (25-34) pg MCHC 33.8 (32-36) g/dL RDW Std Deviation 40.9 (36.4-46.3) fL RDW Coeff of [place] 12.7 (11.5-14.5) % Plt Count 233 (130-400) K/uL MPV 10.1 (7.4-10.4) fL Immature Gran % (Auto) 0.3 % Neut % (Auto) 75.9 % Lymph % (Auto) 14.8 % [place] % (Auto) 8.2 % Eos % (Auto) 0.7 % Baso % (Auto) 0.1 % Neut # (Auto) 11.43 H (1.4-6.5) K/uL Lymph # (Auto) 2.23 (1.2-3.4) K/uL [place] # (Auto) 1.23 H (0.11-0.59) K/uL Eos # (Auto) 0.10 (0-0.5) K/uL Baso # (Auto) 0.01 (0-0.2) K/uL Immature Gran # (Auto) 0.04 H (0.00-0.02) K/uL Sodium 137 D (136-145) mmol/L Potassium 4.6 (3.5-5.1) mmol/L Chloride 104 (98-107) mmol/L Carbon Dioxide 24 (21-32) mmol/L Anion Gap 9.0 (3-11) BUN 9 (7-18) mg/dl Creatinine 0.57 L (0.6-1.2) mg/dl Est Cr Clr Drug Dosing 142.9 ml/min Est GFR ( Amer) 147.2 Est GFR (Non-Af Amer) 127.0 BUN/Creatinine Ratio 16.3 (10-20) Glucose 84 (70-99) mg/dl POC Glucose (70-99) mg/dl Fasting Glucose (70-99) mg/dl Estimat Average Glucose 111 mg/dl Hemoglobin A1c 5.5 (4.5-5.6) % Uric Acid (2.6-7.2) mg/dl Calcium 8.7 D (8.5-10.1) mg/dl Magnesium 2.7 H (1.8-2.4) mg/dl Total Bilirubin (0.2-1) mg/dl Direct Bilirubin (0-0.2) mg/dl AST (15-37) U/L ALT (12-78) U/L Alkaline Phosphatase (45-117) U/L Lactate Dehydrogenase (84-246) U/L Total Protein (6.4-8.2) gm/dl Albumin (3.4-5.0) gm/dl Globulin (2.5-4.0) gm/dl Albumin/Globulin Ratio (0.9-2) Urine Color Urine Appearance (Clear) Urine pH (4.5-7.5) Ur Specific [place] (1.000-1.030) Urine Protein (Negative) Urine Glucose (UA) (Negative) Urine Ketones (Negative) Urine Blood (Negative) Urine Nitrite (Negative) Urine Bilirubin (Negative) Urine Urobilinogen (Negative) Ur Leukocyte Esterase (Negative) Urine RBC (0-4) /hpf Urine WBC (0-5) /hpf Ur Epithelial Cells (0-5) /lpf Urine Bacteria (Negative) Ur Random Creatinine mg/dl U Random Total Protein (0-11.9) mg/dl Protein/Creatinin Ratio (0-0.2) COVID-19 Eval Order SARS-CoV-2, RNA, NAAT (NEGATIVE) PE: General: Alert, orientedx3, NAD CVS: S1S2 RRR Lungs; CTAB Abd: soft, NT, ND, BS+, fundus firm, below Umbilicus Incision: Clean, dry, intact Perineum intact, Lochia rubra minimal Ext; NT, LE edema better, Homans sign neg/ neg AP: 25 yo s/p Primary C Section, s/p IOL, for preeclampsia, pod# 3 On Labetalol for High BP, elevated this morning, received 200 mg earlier 151/ 99 now Plan to increase Labetalol to tid VSS Afebrile doing well clinically, asymptomatic Continue routine postop care Encourage ambulation, PO intake All questions were answered Anticipate D/C home tomorrow Results & Data ([facility]) Vital Signs (Past 12 Hours) Vital Signs Temp Pulse Resp BP Pulse Ox 03/10/20 07:50 36.6 C 98 H 18 167/99 H 03/09/20 23:45 36.7 C 80 18 168/100 H 96 03/09/20 21:06 36.9 C 78 18 169/105 H
[2020-03-10] MEDS: SIMETHICONE 80 MG CHEW PO SCH ×4 (08:48→19:59)
[2020-03-10] MEDS: PRENATAL VITAMIN 1 TAB PO SCH (08:48)
[2020-03-10] MEDS: oxyCODONE/ACETAMINOPHEN 5mg/325mg TAB PO PRN ×3 (08:48→17:35)
[2020-03-10] MEDS: FERROUS SULFATE 325 MG TAB PO SCH (08:48)
[2020-03-10] MEDS: DOCUSATE SODIUM 100 MG CAP PO SCH ×2 (08:48→19:59)
[2020-03-10] MEDS: IBUPROFEN 600 MG TAB PO PRN ×3 (08:49→17:36)
[2020-03-10] MEDS ORDERED: NIFEdipine 10 MG CAP PO STA (16:07)
[2020-03-10] MEDS ORDERED: NIFEdipine 10 MG CAP ONE (16:10)
--- NOTE | 2020-03-10 17:10 | Hospitalist Progress Note ---
Date of Service March 10, 2020 Assessment & Plan (1) Hypoxia: Acute respiratory failure with hypoxia Secondary to volume overload/Pulmonary edema COVID Screen: Negative -CTA:No evidence for pulmonary embolus. [id number] pulmonary edema and small bilateral pleural effusions. Mild diffuse body wall edema. Consolidation within the bilateral lower lobes posteriorly. This is nonspecific but favors atelectasis from the pleural effusions. A superimposed pneumonia is considered less likely but not entirely excluded. -ECHO: (Systolic function is normal. EF 55 to 60%. Right ventricle systolic function is normal. Mild mitral regurgitation. Received a dose of Lasix IV fluids discontinued Weaned off of supplemental oxygen Saturating well on room air Continue incentive spirometry Hyponatremia Secondary to above Resolved Monitor sodium levels S/P : Pre-eclampsia during in third trimester, antepartum: Continue labetalol and preeclampsia management as per PRIMARY CARE PROVIDER Agree with increasing Labetalol and adding Nifedipine for better BP control Low Salt diet [employer] on weight loss GDM (gestational diabetes mellitus): Hgb A1c:5.5 Monitor BSG DVT Px: SCDs Encourage to ambulate Admission and Anticipated Discharge Date Admission Date: March 06, 2020 Subjective Patient is seen and examined at bedside No complaints Denies any chest pain, shortness breath, dizziness, nausea, abdominal pain Discussed with OBGYN today BP better Review of Systems Review of Systems: All systems reviewed & are unremarkable except as noted in HPI & below Physical Exam Physical Exam: Physical Exam: Vitals signs as noted above General Appearance:Obese, no apparent distress Head: normocephalic, Atraumatic Eyes: normal inspection, EOMI Neck: supple, Trachea midline Respiratory/Chest: Normal breath sounds, CTA Cardiovascular: S1, S2, No murmur Abdomen/GI:Soft, Non tender, Bowel sounds present Extremities/Musculoskelatal:normal inspection, B/L LE edema Neurologic/Psych:AAOX3, grossly no focal neurological deficits Skin: normal color, warm Results & Data Results & Data ([facility]) Vital Signs (Past 12 Hours) Vital Signs Temp Pulse Resp BP BP Pulse Ox 03/10/20 15:54 36.6 C 78 18 165/94 H 194/112 H 98 03/10/20 14:37 82 167/93 H 03/10/20 12:00 88 163/93 H 03/10/20 10:20 170/98 H 167/95 H 03/10/20 08:45 157/99 H 03/10/20 07:50 36.6 C 98 H 18 167/99 H 03/10/20 07:35 36.7 C 79 18 167/100 H 178/108 H 98
[2020-03-10] MEDS ORDERED: NIFEdipine EXTENDED REL 30 MG TABCR PO SCH (19:45)
[2020-03-11] MEDS: oxyCODONE/ACETAMINOPHEN 5mg/325mg TAB PO PRN ×2 (00:46→08:37)
[2020-03-11] MEDS: IBUPROFEN 600 MG TAB PO PRN ×2 (00:46→08:38)
[2020-03-11] MEDS: LABETALOL HCL 200 MG TAB PO SCH ×2 (04:57→08:39)
[2020-03-11] MEDS ORDERED: ACYCLOVIR 5% OINT 15 GM TUBE EXT PRN (08:00)
[2020-03-11] MEDS: SIMETHICONE 80 MG CHEW PO SCH (08:37)
[2020-03-11] MEDS: FERROUS SULFATE 325 MG TAB PO SCH (08:37)
[2020-03-11] MEDS: DOCUSATE SODIUM 100 MG CAP PO SCH (08:37)
[2020-03-11] MEDS: PRENATAL VITAMIN 1 TAB PO SCH (08:37)
--- NOTE | 2020-03-11 08:43 | Surgery Progress Note ---
Date of Service March 11, 2020 Assessment & Plan Admission and Anticipated Discharge Date Admission Date: March 06, 2020 Subjective POD#4 stable BP no headache or blurred vision new onset oral lesion on lips noted passing gas tolerating diet ou of bed Physical Exam Constitutional: WD/WN, vitals as above well developed and comfortable incision c/d/i abdomen is soft decreasing leg edema neg Tamela's plan for d/c Follow up Monday in office Results & Data ([facility]) Vital Signs (Past 12 Hours) Vital Signs Temp Pulse Resp BP BP 03/11/20 04:09 145/90 H 151/98 H 03/11/20 00:35 36.6 C 77 20 149/96 H 161/99 H 03/10/20 22:03 143/89 H 142/89 H 03/10/20 21:11 155/97 H 172/107 H Laboratory Results Laboratory Results - last 72 hr 03/08/20 03/09/20 03/09/20 09:11 06:23 06:23 WBC 15.04 H RBC 3.56 L Hgb 10.5 L Hct 31.1 L MCV 87.4 MCH 29.5 MCHC 33.8 RDW Std Deviation 40.9 RDW Coeff of Tabatha 12.7 Plt Count 233 MPV 10.1 Immature Gran % (Auto) 0.3 Neut % (Auto) 75.9 Lymph % (Auto) 14.8 [place] % (Auto) 8.2 Eos % (Auto) 0.7 Baso % (Auto) 0.1 Neut # (Auto) 11.43 H Lymph # (Auto) 2.23 [place] # (Auto) 1.23 H Eos # (Auto) 0.10 Baso # (Auto) 0.01 Immature Gran # (Auto) 0.04 H Sodium Potassium Chloride Carbon Dioxide Anion Gap BUN Creatinine Est Cr Clr Drug Dosing Est GFR ( Amer) Est GFR (Non-Af Amer) BUN/Creatinine Ratio Glucose POC Glucose 99 Estimat Average Glucose 111 Hemoglobin A1c 5.5 Calcium Magnesium 03/09/20 06:23 WBC RBC Hgb Hct MCV MCH MCHC RDW Std Deviation RDW Coeff of Tabatha Plt Count MPV Immature Gran % (Auto) Neut % (Auto) Lymph % (Auto) [place] % (Auto) Eos % (Auto) Baso % (Auto) Neut # (Auto) Lymph # (Auto) [place] # (Auto) Eos # (Auto) Baso # (Auto) Immature Gran # (Auto) Sodium 137 D Potassium 4.6 Chloride 104 Carbon Dioxide 24 Anion Gap 9.0 BUN 9 Creatinine 0.57 L Est Cr Clr Drug Dosing 142.9 Est GFR ( Amer) 147.2 Est GFR (Non-Af Amer) 127.0 BUN/Creatinine Ratio 16.3 Glucose 84 POC Glucose Estimat Average Glucose Hemoglobin A1c Calcium 8.7 D Magnesium 2.7 H
[2020-03-11] MEDS ORDERED: ACYCLOVIR 400 MG TAB PO SCH (09:00)
[2020-03-11] MEDS ORDERED: NIFEdipine EXTENDED REL 30 MG TABCR PO SCH (17:00)
--- NOTE | 2020-03-13 09:23 | Discharge Summary (DS) ---
DETAILS OF ADMISSION: The patient is a 25-year-old G1, P0, 36 weeks of gestation. She was admitted by Dr. Gibson on 03/06/2020 for preeclampsia with severe features and started on IV magnesium for seizure prophylaxis. She was placed 1 dose of Cervidil and her cervix was unfavorable on March 07 when I took over. I placed a Peres balloon into the cervix and started on oxytocin. Then in the afternoon membranes were ruptured and clear fluid was obtained. Despite adequate uterine contractions, documented with IUPC placement, her cervix has not changed and her preeclampsia symptoms were worse due to diffuse swelling of extremities, abdomen and perineum and due to above findings decision was made to deliver the baby via . She delivered a viable male at 22:52 p.m. Apgars were 9/9, weight was 2400 grams. Her surgery was uncomplicated. See dictated op note for details. On postop period, the patient was doing well. She was started on PO Labetalol for elevated BP. Hr Urine output was adequate and her vital signs were stable and then later in tne morning oxygen saturation was found to be low on room air about 88-92%. The patient had no symptoms of chest pain or shortness of breath, magnesium level was 5.9. Her magnesium was decreased to 1 gram per hour after delivery. Due to persistent hypoxemia, hospitalist team was consulted. They ordered a CT of chest and echocardiogram. CT of chest was negative for PE, but there was pulmonary edema. Her IV fluids were decreased and IV magnesium was stopped and she was given 1 dose of Lasix. After that, her oxygen saturations improved to 95-97% on 2 liters of oxygen, which was decreased to 1 liter and then oxygen was discontinued. Her saturations came up to 97% on room air. Urine output improved. She started diuresing and edema of lower extremities and perineum were also improved. On postop day #2, the patient was doing well, passing gas, tolerating a regular diet. No chest pain, shortness of breath, No headaches, change in her vision. Her liver enzymes have been stable. Her blood pressures were elevated. Some of them were in severe ranges. The labetalol dose was increased to 200 t.i.d. Despite that, her blood pressures were elevated. She was also started on Procardia-XL. On postoperative day #4, her blood pressures were stable. She had no symptoms. She was ambulating, tolerating regular diet. Her swelling was going down. Abdomen was soft, nontender. Incision was clean, dry and intact. She was discharged home by Dr. Gibson. Discharge instructions were given. Prescriptions were written for blood pressure medications and pain medications. She is to be seen in office in a week. All questions were answered. KEM
== END 2020-03-11 11:10 | disposition home or self-care (01) | DRG 786 ==
LOC: OPB 15:54 → 4S1 15:57 → 4S2 03-08 14:44
DX: Z3A.36 36 weeks gestation of pregnancy; E87.0 Hyperosmolality and hypernatremia; J81.1 Chronic pulmonary edema; O14.14 Severe pre-eclampsia complicating childbirth; Z91.030 Bee allergy status; O36.8330 Maternal care for abnormalities of the fetal heart rate or rhythm, third trimester, not applicable or unspecified; E87.70 Fluid overload, unspecified; Z20.822 Contact with and (suspected) exposure to COVID-19; J96.01 Acute respiratory failure with hypoxia; O99.285 Endocrine, nutritional and metabolic diseases complicating the puerperium; O99.53 Diseases of the respiratory system complicating the puerperium; O62.0 Primary inadequate contractions; Z37.0 Single live birth; Z79.899 Other long term (current) drug therapy; O24.429 Gestational diabetes mellitus in childbirth, unspecified control